=== PATIENT | female | born 1935 | race Caucasian/White ===

== ENCOUNTER 2018-02-02 14:05 | Inpatient (IN) | payer MEDICARE ==
[~2018-02-02 14:05] MED LIST: Iopamidol 370 76% 100 ML VIAL ONE; Iopamidol 370 76% 50 ML VIAL FS ONE
[2018-02-02] MEDS ORDERED: Ondansetron HCl/PF 4 MG/2 ML Vial ONE (14:25)
[2018-02-02] MEDS ORDERED: Atropine Sulfate 1 mg/10 ml Syringe ONE (14:28)
[2018-02-02] MEDS ORDERED: Heparin 10,000 UNITS/1 ML VIAL ONE ×2 (14:36→16:04)
[2018-02-02] MEDS ORDERED: Aggrastat 12.5 MG/250 ML 250 ML ONE (14:36)
[2018-02-02] MEDS ORDERED: Adenosine 6 MG/2 ML VIAL ONE (14:39)
[2018-02-02] MEDS ORDERED: Heparin 1000 UNIT/NS 500ML(OR) 500 ML ONE (14:39)
[2018-02-02] MEDS ORDERED: Nitroglycerin 100MG/250ML BOT 250 ML ONE (15:17)
[2018-02-02] MEDS ORDERED: Heparin 1000 UNIT/NS 500ML(OR) 1,000 ML ONE (16:04)
[2018-02-02 16:11] LABS: #Eosinphils 0.3 thou/uL (0.0-0.7); #Monocytes 0.7 thou/uL (0.11-0.59); #Neutrophils 6.7 thou/uL (1.40-6.50); %Basophils 0.3 % (0.0-1.0); %Eosinophils 3.1 % (0.0-10.0); %Lymphocytes 20.3 % (21.0-51.0); %Monocytes 7.6 % (0.0-10.0); %Neutrophils 68.6 % (42.0-75.0); Hemoglobin 14.1 g/dL (12.0-16.0); Mean Corpuscular HGB CONC 32.7 g/dL (32.0-36.0); Mean Corpuscular Hemoglobin 29.1 pg (27.0-31.0); Mean Corpuscular Volume 89.2 fL (78.0-98.0); Mean Platelet Volume 9.1 fL (7.4-10.4); Platelet Count 207 thou/uL (130-400); RBC Distribution Width 12.2 % (11.5-14.5); Red Blood Cell (RBC) Count 4.84 mill/uL (4.20-5.40); White Blood Cell (WBC) Count 9.7 thou/uL (4.8-10.8)
[2018-02-02 16:17] LABS: INR-International Normal Ratio 1.1
[2018-02-02 16:18] LABS: PTT 74.1 SEC (22.9-36.1)
[2018-02-02 16:24] LABS: CKMB 1.1 ng/mL (0-6.6); Troponin I 0.026 ng/mL (< 0.028)
[2018-02-02] MEDS ORDERED: Sodium Chloride 0.9% 1,000 ML IV SCH (16:38)
[2018-02-02] MEDS ORDERED: Clopidogrel Bisulfate 300 MG TAB PO SCH (16:38)
[2018-02-02 16:46] VITALS: BMI 38.8
[2018-02-02] MEDS ORDERED: Clopidogrel Bisulfate 75 MG TAB ONE (16:56)
[2018-02-02 17:06] LABS: #Lymphocytes 1.6 thou/uL (1.20-3.40); #Monocytes 0.3 thou/uL (0.11-0.59); #Neutrophils 6.8 thou/uL (1.40-6.50); %Basophils 0.6 % (0.0-1.0); %Eosinophils 0.5 % (0.0-10.0); %Lymphocytes 18.4 % (21.0-51.0); %Monocytes 3.1 % (0.0-10.0); %Neutrophils 77.4 % (42.0-75.0); Hemoglobin 13.7 g/dL (12.0-16.0); Mean Corpuscular HGB CONC 33.6 g/dL (32.0-36.0); Mean Corpuscular Hemoglobin 29.7 pg (27.0-31.0); Mean Corpuscular Volume 88.3 fL (78.0-98.0); Mean Platelet Volume 8.2 fL (7.4-10.4); Platelet Count 243 thou/uL (130-400); RBC Distribution Width 12.1 % (11.5-14.5); White Blood Cell (WBC) Count 8.7 thou/uL (4.8-10.8)
[2018-02-02] MEDS ORDERED: Amiodarone In Dextrose 200 ML IVPB SCH (17:15)
[2018-02-02 17:29] LABS: ALT (SGPT) 11 U/L (8-55); AST (SGOT) 21 U/L (5-34); Albumin 3.6 g/dL (3.4-4.8); Alkaline Phosphatase 74 U/L (40-150); Anion Gap 14 mmol/L (10-20); BUN (Urea Nitrogen) 14 mg/dL (9.8-20.1); Bilirubin, Total 0.6 mg/dL (0.2-1.2); CK (CPK) 104 U/L (29-168); Calc. Creatinine Clearance 105 mL/min (70-130); Calcium 8.7 mg/dL (7.8-10.44); Carbon Dioxide 22 mmol/L (23-31); Chloride 103 mmol/L (98-107); Estimated GFR-MDRD 80; Globulin 2.6 g/dL (2.4-3.5); Glucose 259 mg/dL (83-110); Potassium 3.7 mmol/L (3.5-5.1); Protein, Total 6.2 g/dL (6.0-8.3); Sodium 135 mmol/L (136-145)
[2018-02-02] MEDS: Morphine 4 MG/ML VIAL SLOW IVP PRN ×2 (18:17→21:46)
--- NOTE | 2018-02-02 18:52 | RAD ---
PORTABLE AP CHEST X-RAY: 02/02/18 HISTORY: Code Blue. COMPARISON: 02/02/18. FINDINGS: The thoracic aorta is ectatic and partially calcified. The cardiac silhouette is magnified by project ion. Pulmonary vasculature is within normal limits. Linear scarring is again present in the left mid lung zone. Lungs otherwise appear clear. There is osteopenia present. No other interval change. IMPRESSION: Stable chest without evidence of an acute cardiopulmonary process. POS: JARED
[2018-02-02] MEDS: Ondansetron HCl/PF 4 MG/2 ML Vial IVP PRN (19:26)
[2018-02-02] MEDS: Amiodarone HCl 450 MG, Admixture Fee 1 EACH in Dextrose 5% in Water 250 ML IVPB SCH (20:26)
[2018-02-02] MEDS: Acetaminophen 325 MG TAB PO PRN (21:47)
[2018-02-02] MEDS ORDERED: Promethazine HCl 25 MG/ML VIAL SLOW IVP PRN (22:05)
[2018-02-02] MEDS ORDERED: Fentanyl 100 MCG/2 ML VIAL SLOW IVP PRN (22:06)
--- NOTE | 2018-02-02 22:25 | HP ---
HISTORY: Yoanna Galan is an 82-year-old white female from [facility]. At 1:00 a.m. this morning, she began to have chest pressure associated with nausea , vomiting, shortness of breath, no diaphoresis. She eventually went to the emergency room in [place] and was helicoptered here and I saw her approximately 13 hours after onset of her pain. PAST MEDICAL HISTORY: Hypertension and diabetes. She denies any history of hypercholesterolemia. MEDICATIONS: Diabetes and blood pressure medicines. ALLERGIES: None. OPERATIONS: Radiation for meningioma. SOCIAL HISTORY: She does not smoke or drink. FAMILY HISTORY: Negative for coronary artery disease. PHYSICAL EXAMINATION: VITAL SIGNS: Blood pressure 130/70 and pulse of 80. HEENT: PERRL. NECK: Supple. CHEST: Clear. CARDIAC EXAMINATION: S1 and S2 are normal, without any S3 or S4. Carotid upstrokes normal, without bruits. ABDOMEN: Very obese, normal bowel sounds, no tenderness. EXTREMITIES: Revealed trace pretibial edema. NEUROLOGICAL: Grossly intact. LABORATORY AND X-RAY FINDINGS: EKG reveals ST elevation in II, III, and AVF. IMPRESSION: 1. Inferior ST-elevation myocardial infarction. 2. Hypertension. 3. Diabetes. 4. Morbid obesity. PLAN: The situation was discussed with patient. Recommended she undergo emergent catheterization. Risks were discussed including , myocardial infarction, dye reaction, vascular injury, CVA, transfusion, limb loss, renal loss, heat sector. Risk of intervention with PTCA and stent placement were discussed including , myocardial infarction, emergent CABG, restenosis, stent thrombosis, etc. It was recommended that a drug-eluting stent be placed and she has no history of gastrointestinal bleeding, stroke, or upcoming surgery. She agrees to proceed. [facility]
[2018-02-02] MEDS: Aggrastat 12.5 MG/250 ML 250 ML IVPB SCH (23:50)
[2018-02-03 00:29] LABS: CKMB 164.7 ng/mL (0-6.6); Troponin I 32.705 ng/mL (< 0.028)
[2018-02-03 03:59] LABS: CKMB 241.7 ng/mL (0-6.6)
[2018-02-03 04:10] LABS: Troponin I 56.752 ng/mL (< 0.028)
[2018-02-03] MEDS: Ondansetron HCl/PF 4 MG/2 ML Vial IVP PRN ×2 (04:14→11:27)
[2018-02-03 06:42] LABS: #Lymphocytes 1.2 thou/uL (1.20-3.40); #Monocytes 0.8 thou/uL (0.11-0.59); #Neutrophils 9.7 thou/uL (1.40-6.50); %Basophils 0.1 % (0.0-1.0); %Eosinophils 0.1 % (0.0-10.0); %Lymphocytes 10.4 % (21.0-51.0); %Monocytes 6.4 % (0.0-10.0); %Neutrophils 82.9 % (42.0-75.0); Hemoglobin 13.1 g/dL (12.0-16.0); Mean Corpuscular HGB CONC 33.7 g/dL (32.0-36.0); Mean Platelet Volume 8.5 fL (7.4-10.4); Platelet Count 253 thou/uL (130-400); RBC Distribution Width 12.3 % (11.5-14.5); Red Blood Cell (RBC) Count 4.36 mill/uL (4.20-5.40); White Blood Cell (WBC) Count 11.7 thou/uL (4.8-10.8)
[2018-02-03 06:54] LABS: ALT (SGPT) 30 U/L (8-55); AST (SGOT) 183 U/L (5-34); Albumin 3.4 g/dL (3.4-4.8); Alkaline Phosphatase 71 U/L (40-150); Anion Gap 13 mmol/L (10-20); BUN (Urea Nitrogen) 16 mg/dL (9.8-20.1); Bilirubin, Total 0.6 mg/dL (0.2-1.2); Calc. Creatinine Clearance 101 mL/min (70-130); Calcium 8.3 mg/dL (7.8-10.44); Carbon Dioxide 20 mmol/L (23-31); Chloride 105 mmol/L (98-107); Cholesterol 175 mg/dl (< 200 Desired); Estimated GFR-MDRD 77; Globulin 2.7 g/dL (2.4-3.5); Glucose 274 mg/dL (83-110); HDL Cholesterol 35 mg/dL (>60 Neg Risk); LDL Cholesterol, Calculated 120 mg/dL; Potassium 3.6 mmol/L (3.5-5.1); Protein, Total 6.1 g/dL (6.0-8.3); Sodium 134 mmol/L (136-145); Triglycerides 100 mg/dL (Less than 150)
[2018-02-03 06:56] LABS: CKMB 234.8 ng/mL (0-6.6); Critical Call CKMBM RESULT DECREASING
[2018-02-03 07:21] LABS: Troponin I 57.952 ng/mL (< 0.028)
[2018-02-03] MEDS: Clopidogrel Bisulfate 75 MG TAB PO SCH (09:38)
[2018-02-03] MEDS: Amiodarone HCl 450 MG, Admixture Fee 1 EACH in Dextrose 5% in Water 250 ML IVPB SCH (10:49)
[2018-02-03] MEDS: Acetaminophen 325 MG TAB PO PRN (11:27)
[2018-02-03] MEDS: Aggrastat 12.5 MG/250 ML 250 ML IVPB SCH (11:56)
[2018-02-03] MEDS ORDERED: Dextrose 50% Abboject 50 ML SYRINGE SLOW IVP PRN (14:26)
[2018-02-03] MEDS ORDERED: Dextrose 5% in Water 1,000 ML IV PRN (14:26)
[2018-02-03 14:48] LABS: Hemoglobin A1c 7.2 % (4.0-6.0)
--- NOTE | 2018-02-03 15:23 | CON ---
DATE OF CONSULTATION: 02/03/2018 CHIEF COMPLAINT: Chest pressure. CONSULTATION: We have been consulted to evaluate the patient for high blood pressure and diabetes me llitus. HISTORIAN: The patient's daughter and son, reliable. HISTORY OF PRESENT ILLNESS: This is an 82-year-old female with past medical history of diabetes ronnie itus and hypertension who presented to the emergency room with chest discomfort. The patient's chest discomfort started on 02/02/2018 around 1:00 a.m. Per the patient, she felt nausea and some sensati on of not being able to swallow. The patient stated that she had a little bit of shortness of breath and diffuse chest compression. The patient states that she did not have any sharp pain; however, sh e developed the chest compression that she has never felt before. The patient then called her daught er, who lives very close to her and per daughter, she was told to put her clothes on and come over so that they can be able to go to the emergency room. The patient stated that due to her chest michael gaye, daughter picked her up and brought her to the emergency room. The patient states that chest co mpression radiated to her neck and also to her left arm. Her left arm felt very weak. Per the patie nt, nothing really seemed to help with the chest pain. The patient denied any headaches, sweating, c hills, vomiting, chest palpitations, abdominal pain, urinary and bowel incontinence, however, admitte d to having left upper extremity weakness, chest pressure, nausea, dysphagia. REVIEW OF SYSTEMS: As stated before, the patient admitted to chest compression, shortness of breath, left upper extremity weakness, dysphagia, but denied all the other ones except stated in the HPI. PCP: The patient's PCP is Dr. Kemi Mondragon who works with Dr. Alegre at [place]. CODE STATUS: The patient is full code. PAST MEDICAL HISTORY: Hypertension and diabetes mellitus. The patient denies all other past medical history such as hyperlipidemia and heart failure. CURRENT MEDICATIONS: The patient takes metformin and propranolol. ALLERGIES: No known drug allergies. PAST SURGICAL HISTORY: Radiation for meningioma. SOCIAL HISTORY: The patient denies smoking, drinking and illicit drugs. FAMILY HISTORY: No family history of coronary artery disease. SOCIAL HISTORY: The patient lives at home by herself, able to do all her activities of daily living. PHYSICAL EXAMINATION: VITAL SIGNS: Blood pressure , respiratory rate of 22, heart rate of 75, O2 sat of 96% on nasal cannula. GENERAL APPEARANCE: The patient is lying in bed comfortably, does not appear to be in acute distress , communicating, speaking in full sentences without any shortness of breath or any difficulties. HEENT: Normocephalic, atraumatic. Pupils are equal, round and reactive to light. Extraocular movem ents are intact. No scleral icterus. Nose, the patient has nasal cannula in place. Mucous membrane s are moist. NECK: Supple. No JVD. CARDIOVASCULAR: Positive S1, S2. Regular rate and rhythm. No appreciable murmurs. No rubs. LUNGS: Lungs are clear to auscultation bilaterally at the anterior lung flores. ABDOMEN: Soft, nontender, nondistended, obese abdomen. No ecchymosis, no peritoneal signs. Positiv e bowel sounds. EXTREMITIES: +1 pretibial edema, 5/5 upper extremity and lower extremity strength. NEUROLOGIC: No focal neurologic deficits noted. Cranial nerves II-XII grossly intact. PSYCHIATRIC: Awake, alert, oriented x3, normal affect. SKIN: Warm, dry and intact. LABORATORY DATA: EKG revealed ST elevation in II, III, aVF. CK-MB 164.7, 241.7, 234.8. Troponins f irst set 0.026, then 32.705, then 56.752, then 57.952. Lipid panel, triglycerides 100, cholesterol 1 75, LDL is 120, HDL is 35. TSH is 1.11. Creatinine kinase is 104. Alkaline phosphatase is 74. AST and ALT 21 and 11 respectively. Electrolytes, sodium is 135, potassium was 3.7, chloride 103, carbo n dioxide 22, BUN is 14, creatinine is 0.70. Coagulation, PT is 14.0, INR is 1.1, PTT 74.1. WBC was 9.7, hemoglobin 14.1, hematocrit 43.1, RDW 12.2. Chest x-ray showed stable chest without evidence o f an acute cardiopulmonary process. ASSESSMENT AND PLAN: This is an 82-year-old female with diabetes and high blood pressure, being admi tted for, 1. Inferior ST-elevation myocardial infarction. The patient's troponins are positive and CK-MB posi tive. Cardiology has been consulted. Per Cardiology, emergent catheterization was done. The patien t has not been accepted in the ICU. We will follow up with Cardiology's recommendations. 2. Hypertension. We will monitor the patient's blood pressure and start the patient on antihyperten sive medications. 3. Diabetes mellitus. The patient states that she is on metformin. We will adjust the patient medi cations since the patient has been hyperglycemic in the 200s in the hospital. 4. Morbid obesity. Lifestyle modification and exercises are recommended. 5. Deep venous thrombosis and gastrointestinal prophylaxis, SCDs and Pepcid. This case has been dictated by Dr. Gómez Michael on patient Adama To.
--- NOTE | 2018-02-03 15:45 | CON ---
DATE OF CONSULTATION: 02/03/2018 HISTORY OF PRESENT ILLNESS: She is an 82-year-old morbidly obese female, who underwent a c ardiac catheterization yesterday. Her daughter is at the bedside, who states that the patient did no t feel well yesterday and was brought to the ER. EKG shows a sinus bradycardia, rate is in the 52, ST segment elevation. She was taken to cardiac catheterization by Dr. Blake. Please review his note. She has a tempora ry pacemaker inserted through the right femoral area and apparently has had a stent placed in. She is now in the ICU. Awake, alert, responsive. Daughter states the past medical history is pertinent for hypertension and diabetes. She never smoke d, high cholesterol. She has 1 known tremor. PAST SURGICAL HISTORY: Meningioma in the past. Chronic medication from home includes metformin 5000 twice a day, Inderal 40 three times a day. She is presently on amiodarone and Plavix. SOCIAL AND FAMILY HISTORY: Unremarkable. Alcohol, none. Tobacco, none. REVIEW OF SYSTEMS: Otherwise, 10-point negative. PHYSICAL EXAMINATION: GENERAL: Awake, alert, responsive. VITAL SIGNS: Pulse 70, blood pressure 150/80, sats 90%, respirations 18. CHEST: Decreased breath sounds, no wheezing. CARDIAC: Normal S1, S2. No gallops. ABDOMEN: Soft, no masses. LABORATORY DATA: White count , H&H 13 and 38, platelet count 53. Electrolytes are normal. Tro ponin is elevated at . X-ray shows no acute infiltrates. IMPRESSION: 1. Status post bradycardia, status post pacemaker. 2. Abnormal electrocardiogram, coronary artery disease, status post cardiac catheterization. 3. Obesity. 4. Tremor. PLAN: Pulmonary Critical Care will follow while in the ICU. Continue cardiac care, aggressive PT, s upportive care. I will order a thyroid profile. 70 minutes, 50% spent in direct patient care.
--- NOTE | 2018-02-03 15:56 | CCL ---
CARDIAC CATHETERIZATION REPORT: PROCEDURE: Coronary arteriography, [employer] and stent placement in the right coronary artery. Intracoronary nitroglycerin. Intracoronary adenosine. Defibrillation x 7. Temporary pacemaker placement. INDICATION: Inferior STEMI. DESCRIPTION OF PROCEDURE: The patient was brought to the cardiac logging rafter laborer and the right groin was prepped and draped in the usual fashion. 1% lidocaine was infiltrated. A 6- Malawian sheath was placed into the right femoral artery. A 6-Malawian right 4 guide catheter was inserted. The right coronary artery was subtotally occluded distally and a Floppy Choice wire was advanced into the distal right posterolateral. Mobile catheter was inserted, but would not advance past the area of significant stenosis. This was then removed and Emerge 3.0 x 20 mm balloon was inserted and multiple inflations were performed. Heparin was given multiple times during the procedure to a goal of ACT greater than 300. The patient became bradycardic and Atropine 0.5 mg was given. A 5 Malawian sheath was placed into the right femoral vein and a 5-Malawian tipped balloon pacing wire was inserted into the right ventricular apex. Threshold was less than 1 volt and the patient was paced during the remainder of the case. There was no flow in the right coronary artery and the decision was made to proceed to stent the distal vessel. Synergy 3.5 x 20 mm stent was positioned and deployed. Proximal to this, another 3.5 x 38 and then another 3.5 x 38 stents were placed. There continued to be poor flow and multiple doses of adenosine and nitroglycerin were given. A decision was made to insert the Mobile catheter to do direct injections into the distal vessel. The patient did have multiple episodes of ventricular tachycardia which responded to electrical cardioversion performed on multiple occasions, probably up to 7. Adenosine was continued to be given distally. The patient was given amiodarone 300 mg IV and then this was followed by an amiodarone drip and she did not have any further ventricular tachycardia. Multiple doses of nitroglycerin and adenosine were given through the Mobile catheter into the distal right coronary artery. There continued to remain no flow distally. The patient also had been treated with Aggrastat since the beginning of the procedure. The right 4 guide catheter was then removed and left 4 diagnostic catheter was inserted. Left coronary arteriography was performed. The sheath was sutured in place as well as the temporary pacemaker. RESULTS: 1. Right coronary artery -- 60% mid stenosis, 99% distal stenosis. After insertion of stents and injection of nitroglycerin and adenosine distally at the site of bifurcation, there was still IMAN 0 flow. 2. Left main -- normal. 3. The LAD had a 30% proximal stenosis, 60% mid stenosis, 95% distal stenosis. The first diagonal had a 70% stenosis. 4. Circumflex -- There was 60% mid stenosis. IMPRESSION: 1. Three-vessel coronary artery disease. 2. Successful stent placement in the mid to distal right coronary artery into the right posterolateral, however, with IMAN flow despite intracoronary nitroglycerin and adenosine injected distally and Aggristat. POS: LOY LITTLEJOHN
[2018-02-03] MEDS: HumaLOG 300 UNITS/3 ML VIAL SC PRN ×2 (16:43→21:15)
[2018-02-03] MEDS: Morphine 4 MG/ML VIAL SLOW IVP PRN (19:31)
[2018-02-03] MEDS: Atorvastatin Calcium 40 MG TAB PO SCH (21:11)
[2018-02-04] MEDS: Amiodarone HCl 450 MG, Admixture Fee 1 EACH in Dextrose 5% in Water 250 ML IVPB SCH (01:06)
[2018-02-04] MEDS: Morphine 4 MG/ML VIAL SLOW IVP PRN ×2 (01:12→18:05)
[2018-02-04 04:55] LABS: Anion Gap 11 mmol/L (10-20); BUN (Urea Nitrogen) 17 mg/dL (9.8-20.1); Calc. Creatinine Clearance 108 mL/min (70-130); Calcium 8.4 mg/dL (7.8-10.44); Carbon Dioxide 24 mmol/L (23-31); Chloride 104 mmol/L (98-107); Estimated GFR-MDRD 83; Glucose 215 mg/dL (83-110); Potassium 3.5 mmol/L (3.5-5.1); Sodium 135 mmol/L (136-145)
[2018-02-04] MEDS: HumaLOG 300 UNITS/3 ML VIAL SC PRN ×4 (06:25→23:51)
[2018-02-04] MEDS: Clopidogrel Bisulfate 75 MG TAB PO SCH (09:23)
[2018-02-04] MEDS ORDERED: Insulin Glargine 10 UNITS in Pre-Filled Syringe SC SCH (09:30)
--- NOTE | 2018-02-04 10:56 | PRG ---
DATE OF SERVICE: 02/04/2018 SUBJECTIVE: A7 ICU, still got a transvenous pacemaker to the groin. OBJECTIVE: VITAL SIGNS: Heart rate is 80, blood pressure 152/79, sats 100%, respirations 18. GENERAL: In no distress. CHEST: Decreased breath sounds, no wheezing. CARDIAC: Normal S1 and S2, no gallops. ABDOMEN: No masses. ASSESSMENT: Status post cardiac catheterization, bradycardia with a pacemaker, coronary artery disea se. PLAN: We will follow while in the ICU. Continue present supportive care as per Cardiology.
[2018-02-04] MEDS ORDERED: Propranolol HCl 20 MG TAB PO SCH (11:15)
[2018-02-04] MEDS: Propranolol HCl 20 MG TAB PO SCH ×2 (16:05→22:00)
[2018-02-04] MEDS: Atorvastatin Calcium 40 MG TAB PO SCH (21:59)
--- NOTE | 2018-02-04 23:06 | PDOC.PN ---
- Subjective Encounter Start Date: 02/04/18 Encounter Start Time: 09:30 Patient seen and examined for med mngt. No new complaints. No overnight events - Objective MAR Reviewed: Yes Vital Signs & Weight: Vital Signs (12 hours) Temp Pulse Resp BP Pulse Ox 02/04/18 20:00 98.4 F 02/04/18 18:31 97 02/04/18 16:38 98.2 F 82 17 153/94 H 02/04/18 16:00 98.2 F 02/04/18 12:00 98.1 F Weight Weight 233 lb 7.512 oz Most Recent Monitor Data Heart Rate from ECG 71 NIBP 139/78 NIBP BP-Mean 85 Respiration from ECG 20 SpO2 99 I&O: 02/03/18 02/04/18 02/05/18 06:59 06:59 06:59 Intake Total 2189 1095 1107 Output Total 640 805 635 Balance 1549 290 472 Result Diagrams: 02/03/18 06:20 02/04/18 04:10 Additional Labs: Accuchecks 02/04/18 02/04/18 02/04/18 17:44 11:39 06:25 POC Glucose 191 H 187 H 188 H EKG Reviewed by me: Yes (Tele SR) Phys Exam - Physical Examination Constitutional: NAD Respiratory: no wheezing, no rhonchi Cardiovascular: RRR, no rub Gastrointestinal: soft, non-tender, positive bowel sounds Musculoskeletal: no edema Neurological: moves all 4 limbs Dx/Plan - Plan DVT proph w/SCDs IMPRESSION: 1. DM2 - uncontrolled. 2. HTN 3. Obesity BMI 38.9 4. CKD 2 5. Other issues per previous notes PLAN: Add Lantus 10 units daily Cont Moderate sliding scale Resume Inderal Cont to monitor Review of Systems - Review of Systems Cardiovascular: negative: chest pain, palpitations, orthopnea, paroxysmal nocturnal dyspnea, edema, light headedness, other Gastrointestinal: negative: Nausea, Vomiting, Abdominal Pain, Diarrhea, Constipation, Melena, Hematochezia, Other - Medications/Allergies Allergies/Adverse Reactions: Allergies Allergy/AdvReac Type Severity Reaction Status Date / Time No Known Drug Allergies Allergy Verified 02/02/18 16:45 Medications: Current Medications Acetaminophen (Tylenol) 650 mg PO Q6H PRN PRN Reason: Pain Last Admin: 02/03/18 11:27 Dose: 650 mg Aspirin (Aspirin Chewable) 81 mg PO DAILY [facility] Last Admin: 02/04/18 09:23 Dose: 81 mg Atorvastatin Calcium (Lipitor) 40 mg PO HS [facility] Last Admin: 02/04/18 21:59 Dose: 40 mg Clopidogrel Bisulfate (Plavix) 75 mg PO DAILY [facility] Last Admin: 02/04/18 09:23 Dose: 75 mg Dextrose/Water (Dextrose 50%) 25 gm SLOW IVP PRN PRN PRN Reason: Hypoglycemia Fentanyl (Sublimaze) 25 mcg SLOW IVP Q4H PRN PRN Reason: Severe Pain (7-10) Glucagon (Glucagon) 1 mg IM PRN PRN PRN Reason: Hypoglycemia Dextrose/Water (D5w) 1,000 mls @ 0 mls/hr IV .Q0M PRN PRN Reason: Hypoglycemia Insulin Glargine 10 units/ (Miscellaneous Medication) 0.1 mls @ 0 mls[place] [facility] [place] Human Lispro (Humalog) 0 units SC .MODERATE SLIDING SC PRN PRN Reason: Moderate Correctional Scale Last Admin: 02/04/18 18:10 Dose: 2 unit Morphine Sulfate (Morphine) 4 mg SLOW IVP Q4H PRN PRN Reason: Breakthrough Pain Last Admin: 02/04/18 18:05 Dose: 4 mg Ondansetron HCl (Zofran) 4 mg IVP Q6H PRN PRN Reason: Nausea/Vomiting Last Admin: 02/03/18 11:27 Dose: 4 mg Promethazine HCl (Phenergan) 25 mg SLOW IVP Q6H PRN PRN Reason: Nausea Last Admin: 02/02/18 22:27 Dose: 25 mg Propranolol HCl (Inderal) 40 mg PO TID [facility] Last Admin: 02/04/18 22:00 Dose: 40 mg Sodium Chloride (Flush - Normal Saline) 10 ml IVF Q12HR [facility] Last Admin: 02/04/18 22:01 Dose: 10 ml Sodium Chloride (Flush - Normal Saline) 10 ml IVF PRN PRN PRN Reason: Saline Flush
[2018-02-05 05:28] LABS: Hemoglobin 12.3 g/dL (12.0-16.0); Platelet Count 223 thou/uL (130-400)
[2018-02-05 05:38] LABS: Anion Gap 9 mmol/L (10-20); BUN (Urea Nitrogen) 15 mg/dL (9.8-20.1); Calc. Creatinine Clearance 119 mL/min (70-130); Calcium 8.4 mg/dL (7.8-10.44); Carbon Dioxide 25 mmol/L (23-31); Chloride 104 mmol/L (98-107); Estimated GFR-MDRD Greater than 90; Glucose 145 mg/dL (83-110); Magnesium 1.8 mg/dL (1.6-2.6); Potassium 3.7 mmol/L (3.5-5.1); Sodium 134 mmol/L (136-145)
[2018-02-05] MEDS: Morphine 4 MG/ML VIAL SLOW IVP PRN (06:46)
--- NOTE | 2018-02-05 07:50 | PRG ---
DATE OF SERVICE: 02/05/2018 This morning she is awake, alert, responsive. She is having back pain. PHYSICAL EXAMINATION: VITAL SIGNS: Blood pressure is 124/63, sats 99 on 3 liters, temperature 98, pulse 80. CHEST: Decreased breath sounds, no wheezing. CARDIAC: Normal S1-S2. No gallops. ABDOMEN: Soft. No masses. IMPRESSION: 1. Status post cardiac cath. 2. Status post temporary pacemaker. 3. Chronic pain. PLAN: Aspirin and Plavix on board. Disposition as per Cardiology.
[2018-02-05] MEDS: Clopidogrel Bisulfate 75 MG TAB PO SCH (09:11)
[2018-02-05] MEDS: Propranolol HCl 20 MG TAB PO SCH ×3 (09:12→20:49)
[2018-02-05] MEDS: Senokot S 8.6-50 MG TAB PO SCH ×2 (09:12→20:50)
[2018-02-05] MEDS: Insulin Glargine 10 UNITS in Pre-Filled Syringe SC SCH (09:13)
[2018-02-05] MEDS: HumaLOG 300 UNITS/3 ML VIAL SC PRN ×2 (11:25→17:02)
[2018-02-05] MEDS: Atorvastatin Calcium 40 MG TAB PO SCH (20:50)
[2018-02-05] MEDS: Acetaminophen 325 MG TAB PO PRN (20:55)
--- NOTE | 2018-02-05 21:21 | PDOC.PN ---
- Subjective Encounter Start Date: 02/05/18 Encounter Start Time: 11:00 Patient seen and examined for med mngt. No new complaints. No overnight events - Objective MAR Reviewed: Yes Vital Signs & Weight: Vital Signs (12 hours) Temp Pulse Pulse BP BP Pulse Ox Pulse Ox 02/05/18 18:52 97 02/05/18 16:00 98.2 F 02/05/18 12:00 98.0 F 02/05/18 11:42 98 02/05/18 10:13 77 85 145/80 H 124/68 94 L Pulse Ox 02/05/18 18:52 02/05/18 16:00 02/05/18 12:00 02/05/18 11:42 02/05/18 10:13 95 Weight Weight 233 lb 7.512 oz Most Recent Monitor Data Heart Rate from ECG 75 NIBP 98/52 NIBP BP-Mean 63 Respiration from ECG 22 SpO2 99 I&O: 02/04/18 02/05/18 02/06/18 06:59 06:59 06:59 Intake Total 1095 1107 740 Output Total 805 1075 506 Balance 290 32 234 Result Diagrams: 02/05/18 05:02 02/05/18 05:02 Additional Labs: Accuchecks 02/05/18 02/05/18 02/04/18 16:48 11:22 23:16 POC Glucose 184 H 197 H 159 H EKG Reviewed by me: Yes (Tele SR) Phys Exam - Physical Examination Constitutional: NAD Respiratory: no wheezing, no rhonchi Cardiovascular: RRR, no rub Gastrointestinal: soft, non-tender, positive bowel sounds Musculoskeletal: no edema Neurological: moves all 4 limbs Dx/Plan - Plan DVT proph w/SCDs IMPRESSION: 1. DM2 2. HTN 3. Obesity BMI 38.9 4. CKD 2 5. Other issues per previous notes PLAN: Cont Lantus 10 units daily with sliding scale Insulin teaching Resume Metformin in AM Cont Moderate sliding scale Cont other meds as below Cont to monitor Review of Systems - Review of Systems Respiratory: negative: Cough, Dry, Shortness of Breath, Hemoptysis, SOB with Excertion, Pleuritic Pain, Sputum, Wheezing Cardiovascular: negative: chest pain, palpitations, orthopnea, paroxysmal nocturnal dyspnea, edema, light headedness, other - Medications/Allergies Allergies/Adverse Reactions: Allergies Allergy/AdvReac Type Severity Reaction Status Date / Time No Known Drug Allergies Allergy Verified 02/02/18 16:45 Medications: Current Medications Acetaminophen (Tylenol) 650 mg PO Q6H PRN PRN Reason: Pain Last Admin: 02/05/18 20:55 Dose: 650 mg Aspirin (Aspirin Chewable) 81 mg PO DAILY [facility] Last Admin: 02/05/18 09:11 Dose: 81 mg Atorvastatin Calcium (Lipitor) 40 mg PO HS [facility] Last Admin: 02/05/18 20:50 Dose: 40 mg Clopidogrel Bisulfate (Plavix) 75 mg PO DAILY [facility] Last Admin: 02/05/18 09:11 Dose: 75 mg Dextrose/Water (Dextrose 50%) 25 gm SLOW IVP PRN PRN PRN Reason: Hypoglycemia Fentanyl (Sublimaze) 25 mcg SLOW IVP Q4H PRN PRN Reason: Severe Pain (7-10) Glucagon (Glucagon) 1 mg IM PRN PRN PRN Reason: Hypoglycemia Dextrose/Water (D5w) 1,000 mls @ 0 mls/hr IV .Q0M PRN PRN Reason: Hypoglycemia Insulin Glargine 10 units/ (Miscellaneous Medication) 0.1 mls @ 0 mls/hr SC QAM [facility] Last Admin: 02/05/18 09:13 Dose: 0.1 mls Insulin Human Lispro (Humalog) 0 units SC .MODERATE SLIDING SC PRN PRN Reason: Moderate Correctional Scale Last Admin: 02/05/18 17:02 Dose: 2 unit Morphine Sulfate (Morphine) 4 mg SLOW IVP Q4H PRN PRN Reason: Breakthrough Pain Last Admin: 02/05/18 06:46 Dose: 4 mg Ondansetron HCl (Zofran) 4 mg IVP Q6H PRN PRN Reason: Nausea/Vomiting Last Admin: 02/03/18 11:27 Dose: 4 mg Promethazine HCl (Phenergan) 25 mg SLOW IVP Q6H PRN PRN Reason: Nausea Last Admin: 02/02/18 22:27 Dose: 25 mg Propranolol HCl (Inderal) 40 mg PO TID [facility] Last Admin: 02/05/18 20:49 Dose: 40 mg Senna/Docusate Sodium (Senokot S) 1 tab PO BID [facility] Last Admin: 02/05/18 20:50 Dose: 1 tab Sodium Chloride (Flush - Normal Saline) 10 ml IVF Q12HR [facility] Last Admin: 02/05/18 20:50 Dose: 10 ml Sodium Chloride (Flush - Normal Saline) 10 ml IVF PRN PRN PRN Reason: Saline Flush
[2018-02-06] MEDS: Propranolol HCl 20 MG TAB PO SCH ×3 (09:30→20:23)
[2018-02-06] MEDS: metFORMIN 500 MG TAB PO SCH ×2 (09:30→19:06)
[2018-02-06] MEDS: Clopidogrel Bisulfate 75 MG TAB PO SCH (09:31)
[2018-02-06] MEDS: Insulin Glargine 10 UNITS in Pre-Filled Syringe SC SCH (09:31)
[2018-02-06] MEDS: Senokot S 8.6-50 MG TAB PO SCH ×2 (09:31→20:22)
[2018-02-06] MEDS: Atorvastatin Calcium 40 MG TAB PO SCH (20:23)
--- NOTE | 2018-02-06 21:55 | PDOC.PN ---
- Subjective Encounter Start Date: 02/06/18 Encounter Start Time: 08:30 Patient seen and examined for med mngt. No new complaints. No overnight events. No CP. - Objective MAR Reviewed: Yes Vital Signs & Weight: Vital Signs (12 hours) Temp Pulse Pulse Pulse Resp BP BP 02/06/18 20:00 98.3 F 74 19 02/06/18 16:00 98.2 F 70 12 02/06/18 12:00 98.0 F 73 14 02/06/18 11:54 72 76 130/77 138/79 BP Pulse Ox Pulse Ox 02/06/18 20:00 120/61 95 02/06/18 16:00 129/84 93 L 02/06/18 12:00 126/68 94 L 02/06/18 11:54 99 Weight Weight 229 lb 14.4 oz Most Recent Monitor Data Heart Rate from ECG 75 NIBP 98/52 NIBP BP-Mean 63 Respiration from ECG 22 SpO2 99 I&O: 02/05/18 02/06/18 02/07/18 06:59 06:59 06:59 Intake Total 1107 980 720 Output Total 1075 956 Balance 32 24 720 Result Diagrams: 02/05/18 05:02 02/05/18 05:02 Additional Labs: Accuchecks 02/06/18 02/06/18 02/06/18 20:05 17:11 10:35 POC Glucose 127 H 142 H 152 H 02/06/18 05:57 POC Glucose 141 H Phys Exam - Physical Examination Constitutional: NAD Respiratory: no wheezing, no rhonchi Cardiovascular: RRR, no rub Gastrointestinal: soft, non-tender, positive bowel sounds Musculoskeletal: no edema Neurological: moves all 4 limbs Dx/Plan - Plan DVT proph w/SCDs IMPRESSION: 1. DM2 2. HTN 3. Obesity BMI 38.9 4. CKD 2 5. Other issues per previous notes PLAN: Cont Lantus/metformin/sliding scale Cont other meds as below Cont to monitor Review of Systems - Review of Systems Respiratory: negative: Cough, Dry, Shortness of Breath, Hemoptysis, SOB with Excertion, Pleuritic Pain, Sputum, Wheezing Cardiovascular: negative: chest pain, palpitations, orthopnea, paroxysmal nocturnal dyspnea, edema, light headedness, other - Medications/Allergies Allergies/Adverse Reactions: Allergies Allergy/AdvReac Type Severity Reaction Status Date / Time No Known Drug Allergies Allergy Verified 02/02/18 16:45 Medications: Current Medications Acetaminophen (Tylenol) 650 mg PO Q6H PRN PRN Reason: Pain Last Admin: 02/05/18 20:55 Dose: 650 mg Aspirin (Aspirin Chewable) 81 mg PO DAILY [facility] Last Admin: 02/06/18 09:31 Dose: 81 mg Atorvastatin Calcium (Lipitor) 40 mg PO HS [facility] Last Admin: 02/06/18 20:23 Dose: 40 mg Clopidogrel Bisulfate (Plavix) 75 mg PO DAILY [facility] Last Admin: 02/06/18 09:31 Dose: 75 mg Dextrose/Water (Dextrose 50%) 25 gm SLOW IVP PRN PRN PRN Reason: Hypoglycemia Fentanyl (Sublimaze) 25 mcg SLOW IVP Q4H PRN PRN Reason: Severe Pain (7-10) Glucagon (Glucagon) 1 mg IM PRN PRN PRN Reason: Hypoglycemia Dextrose/Water (D5w) 1,000 mls @ 0 mls/hr IV .Q0M PRN PRN Reason: Hypoglycemia Insulin Glargine 10 units/ (Miscellaneous Medication) 0.1 mls @ 0 mls/hr SC [facility] Last Admin: 02/06/18 09:31 Dose: 0.1 mls Insulin Human Lispro (Humalog) 0 units SC .MODERATE SLIDING SC PRN PRN Reason: Moderate Correctional Scale Last Admin: 02/05/18 17:02 Dose: 2 unit Metformin HCl (Glucophage) 500 mg PO BID[facility] Last Admin: 02/06/18 19:06 Dose: 500 mg Morphine Sulfate (Morphine) 4 mg SLOW IVP Q4H PRN PRN Reason: Breakthrough Pain Last Admin: 02/05/18 06:46 Dose: 4 mg Ondansetron HCl (Zofran) 4 mg IVP Q6H PRN PRN Reason: Nausea/Vomiting Last Admin: 02/03/18 11:27 Dose: 4 mg Promethazine HCl (Phenergan) 25 mg SLOW IVP Q6H PRN PRN Reason: Nausea Last Admin: 02/02/18 22:27 Dose: 25 mg Propranolol HCl (Inderal) 40 mg PO TID [facility] Last Admin: 02/06/18 20:23 Dose: 40 mg Senna/Docusate Sodium (Senokot S) 1 tab PO BID [facility] Last Admin: 02/06/18 20:22 Dose: 1 tab Sodium Chloride (Flush - Normal Saline) 10 ml IVF Q12HR [facility] Last Admin: 02/06/18 21:10 Dose: 10 ml Sodium Chloride (Flush - Normal Saline) 10 ml IVF PRN PRN PRN Reason: Saline Flush
--- NOTE | 2018-02-07 02:17 | CON ---
DATE OF CONSULTATION: 02/06/2018 REQUESTING PHYSICIAN: Shai Blake M.D. PRIMARY CARE PHYSICIAN: ERIKA Jackson CHIEF COMPLAINT: Chest pain. HISTORY OF PRESENT ILLNESS: The patient is a morbidly obese 82-year-old woman with poorly controlled diabetes mellitus. She recently presented with severe chest pain which was her first manifestation of coronary artery disease. She had ST elevation and positive troponins and peaked her CK-MB at approximately 240 and her troponin at approximately 58. She was taken urgently to the [employer] to address her inferior ST elevation and she was found to have very long, high grade lesion in her distal right coronary. Attempts at placement of a drug -eluting stent; however, were fraught with difficulty with respect to maintaining flow through the coronary and at the end of the procedure dye was hanging up in a large posterolateral branch, after left-sided injections suggesting that it re-occluded once again. She has a residual left-sided disease, particularly in her LAD system. She had problems with bradyarrhythmias during the procedure. Temporary pacemaker was placed. Since her procedure, she has remained asymptomatic with respect to chest pain and while she has not had a lot of walking around, she has done some walking around with help and has not had any issues with chest heaviness or shortness of breath or any other symptoms to suggest ischemia. PAST MEDICAL HISTORY: Significant for hypertension and diabetes. HOME MEDICATIONS: Metformin 500 mg b.i.d. and Inderal 40 mg t.i.d., currently baby aspirin and Plavix have been added to that along with Lipitor 40 mg a day and sliding scale insulin. SOCIAL HISTORY: She does not smoke. FAMILY HISTORY: She reports multiple family members with diabetes. REVIEW OF SYSTEMS: Negative for any eye, speech, facial, or extremity symptoms to suggest TIAs. PHYSICAL EXAMINATION: GENERAL: She is an elderly woman who is markedly obese. Currently, heart rates are in the 70s, blood pressure 129/84, room air sats are 93%. She is afebrile. GENERAL: She has no obvious xanthelasma. NECK: No JVD, no carotid bruits. LUNGS: Clear to auscultation. CARDIOVASCULAR: She has regular rate and rhythm without murmur or gallop. ABDOMEN: Morbidly obese. EXTREMITIES: She has palpable radial and dorsalis pedis pulses. She has spider as well as bulging varicosities on her lower extremities, but does appear to have large, but smooth contour greater saphenous vein in the left lower extremity visible in the lower leg. She says that most of her bulging varicosities are posterior to her calf. She has no clubbing, cyanosis or edema. Her chest x-ray showed some mild edema and some aortic knob calcification and her pacer in place. LABORATORY DATA: Showed white count of 9.7, hemoglobin 14.1, platelets 207, 000. Normal coagulation studies. Electrolytes were normal. Glucose was 259, BUN 14, creatinine 0.7. Normal LFTs. Hemoglobin A1c was 7.2. Total cholesterol is 175, LDL 120, HDL 35, triglycerides 100. CK-MB peaked to 41.7 and her troponin was 57.952. Her EKG showed inferior ST elevation. Her cardiac catheterization shows a large right coronary system as described in HPI. She had some disease in her mid distal PDA. Her PDA became nonvisible towards the end of the procedure. She has serial modest lesions in an obtuse marginal. She has an LAD diagonal bifurcation lesion fairly high and then diffuse disease in her mid distal LAD with one focal lesion that is probably in the 80-90% range. Echocardiography shows an EF of around 50% or 60%. The inferior wall appears to be viable. IMPRESSION AND RECOMMENDATIONS: The patient has three-vessel coronary artery disease with essentially normal left ventricular function and the LAD disease is not proximal; one could certainly make an argument for medical management even if she were younger, fitter, and had better quality vessels. It is difficult, however, to imagine that she will remain asymptomatic when she becomes more active given the magnitude of her VA would be nice to be able to wait a few weeks before revascularizing her and I have discussed with Dr. Blake, the possibility of seeing how she does over the next few weeks and possibly restudying her if she is to be considered for revascularization surgically. ANNETTA
[2018-02-07] MEDS: metFORMIN 500 MG TAB PO SCH ×2 (08:33→17:50)
[2018-02-07] MEDS: Propranolol HCl 20 MG TAB PO SCH ×3 (08:33→20:50)
[2018-02-07] MEDS: Insulin Glargine 10 UNITS in Pre-Filled Syringe SC SCH (08:33)
[2018-02-07] MEDS: Senokot S 8.6-50 MG TAB PO SCH ×2 (08:33→20:50)
[2018-02-07] MEDS: Clopidogrel Bisulfate 75 MG TAB PO SCH (08:33)
[2018-02-07] MEDS: Lisinopril 2.5 MG TAB PO SCH (10:11)
[2018-02-07] MEDS: Ondansetron HCl/PF 4 MG/2 ML Vial IVP PRN (17:42)
--- NOTE | 2018-02-07 20:42 | PDOC.PN ---
- Subjective Encounter Start Date: 02/07/18 Encounter Start Time: 09:30 Patient seen and examined for med mngt. No new complaints. No overnight events - Objective MAR Reviewed: Yes Vital Signs & Weight: Vital Signs (12 hours) Temp Pulse Pulse Pulse Resp BP BP 02/07/18 20:00 97.9 F 65 22 H 02/07/18 15:36 97.7 F 75 18 02/07/18 12:34 136/72 02/07/18 11:27 98.0 F 67 18 02/07/18 10:45 75 67 140/79 143/83 H 02/07/18 10:11 66 BP Pulse Ox 02/07/18 20:00 140/73 94 L 02/07/18 15:36 154/83 H 93 L 02/07/18 12:34 02/07/18 11:27 140/79 95 02/07/18 10:45 02/07/18 10:11 Weight Weight 229 lb 14.4 oz Most Recent Monitor Data Heart Rate from ECG 75 NIBP 98/52 NIBP BP-Mean 63 Respiration from ECG 22 SpO2 99 I&O: 02/06/18 02/07/18 02/08/18 06:59 06:59 06:59 Intake Total 980 960 480 Output Total 956 Balance 24 960 480 Result Diagrams: 02/08/18 04:03 02/08/18 04:03 Additional Labs: Accuchecks 02/07/18 02/07/18 02/07/18 16:37 10:45 06:04 POC Glucose 93 112 H 115 H 02/06/18 20:05 POC Glucose 127 H EKG Reviewed by me: Yes (Tele SR) Phys Exam - Physical Examination Constitutional: NAD Respiratory: no wheezing, no rhonchi Cardiovascular: RRR, no rub Gastrointestinal: soft, non-tender, positive bowel sounds Musculoskeletal: no edema Neurological: moves all 4 limbs Dx/Plan - Plan DVT proph w/SCDs IMPRESSION: 1. DM2 2. HTN 3. Obesity BMI 38.9 4. CKD 2 5. Other issues per previous notes PLAN: Cont Lantus with sliding scale Cont Metformin Cont other meds as below Cont to monitor Review of Systems - Review of Systems Respiratory: negative: Cough, Dry, Shortness of Breath, Hemoptysis, SOB with Excertion, Pleuritic Pain, Sputum, Wheezing Cardiovascular: negative: chest pain, palpitations, orthopnea, paroxysmal nocturnal dyspnea, edema, light headedness, other - Medications/Allergies Allergies/Adverse Reactions: Allergies Allergy/AdvReac Type Severity Reaction Status Date / Time No Known Drug Allergies Allergy Verified 02/02/18 16:45 Medications: Current Medications Acetaminophen (Tylenol) 650 mg PO Q6H PRN PRN Reason: Pain Last Admin: 02/05/18 20:55 Dose: 650 mg Aspirin (Aspirin Chewable) 81 mg PO DAILY [facility] Last Admin: 02/07/18 08:33 Dose: 81 mg Atorvastatin Calcium (Lipitor) 40 mg PO HS [facility] Last Admin: 02/06/18 20:23 Dose: 40 mg Clopidogrel Bisulfate (Plavix) 75 mg PO DAILY [facility] Last Admin: 02/07/18 08:33 Dose: 75 mg Dextrose/Water (Dextrose 50%) 25 gm SLOW IVP PRN PRN PRN Reason: Hypoglycemia Fentanyl (Sublimaze) 25 mcg SLOW IVP Q4H PRN PRN Reason: Severe Pain (7-10) Glucagon (Glucagon) 1 mg IM PRN PRN PRN Reason: Hypoglycemia Dextrose/Water (D5w) 1,000 mls @ 0 mls/hr IV .Q0M PRN PRN Reason: Hypoglycemia Insulin Glargine 10 units/ (Miscellaneous Medication) 0.1 mls @ 0 mls/hr [facility] Last Admin: 02/07/18 08:33 Dose: 0.1 mls Insulin Human Lispro (Humalog) 0 units SC .MODERATE SLIDING SC PRN PRN Reason: Moderate Correctional Scale Last Admin: 02/05/18 17:02 Dose: 2 unit Lisinopril (Zestril) 2.5 mg PO DAILY [facility] Last Admin: 02/07/18 10:11 Dose: 2.5 mg Metformin HCl (Glucophage) 500 mg PO BID[facility] Last Admin: 02/07/18 17:50 Dose: Not Given Morphine Sulfate (Morphine) 4 mg SLOW IVP Q4H PRN PRN Reason: Breakthrough Pain Last Admin: 02/05/18 06:46 Dose: 4 mg Ondansetron HCl (Zofran) 4 mg IVP Q6H PRN PRN Reason: Nausea/Vomiting Last Admin: 02/07/18 17:42 Dose: 4 mg Promethazine HCl (Phenergan) 25 mg SLOW IVP Q6H PRN PRN Reason: Nausea Last Admin: 02/02/18 22:27 Dose: 25 mg Propranolol HCl (Inderal) 40 mg PO TID [facility] Last Admin: 02/07/18 16:37 Dose: 40 mg Senna/Docusate Sodium (Senokot S) 1 tab PO BID [facility] Last Admin: 02/07/18 08:33 Dose: 1 tab Sodium Chloride (Flush - Normal Saline) 10 ml IVF Q12HR [facility] Last Admin: 02/07/18 10:12 Dose: 10 ml Sodium Chloride (Flush - Normal Saline) 10 ml IVF PRN PRN PRN Reason: Saline Flush
[2018-02-07] MEDS: Atorvastatin Calcium 40 MG TAB PO SCH (20:50)
[2018-02-08 04:21] LABS: Hemoglobin 11.3 g/dL (12.0-16.0); Platelet Count 276 thou/uL (130-400)
[2018-02-08 05:13] LABS: Anion Gap 11 mmol/L (10-20); BUN (Urea Nitrogen) 14 mg/dL (9.8-20.1); Calc. Creatinine Clearance 119 mL/min (70-130); Calcium 8.5 mg/dL (7.8-10.44); Carbon Dioxide 24 mmol/L (23-31); Chloride 106 mmol/L (98-107); Estimated GFR-MDRD Greater than 90; Glucose 93 mg/dL (83-110); Magnesium 1.6 mg/dL (1.6-2.6); Potassium 3.3 mmol/L (3.5-5.1); Sodium 138 mmol/L (136-145)
[2018-02-08] MEDS ORDERED: Potassium Chloride 20 MEQ TAB PO SCH (08:00)
[2018-02-08] MEDS: metFORMIN 500 MG TAB PO SCH ×2 (08:56→18:25)
[2018-02-08] MEDS: Senokot S 8.6-50 MG TAB PO SCH ×2 (08:59→21:09)
[2018-02-08] MEDS: Clopidogrel Bisulfate 75 MG TAB PO SCH (08:59)
[2018-02-08] MEDS: Propranolol HCl 20 MG TAB PO SCH ×3 (09:00→21:06)
[2018-02-08] MEDS: Lisinopril 2.5 MG TAB PO SCH (09:00)
[2018-02-08] MEDS: Insulin Glargine 10 UNITS in Pre-Filled Syringe SC SCH (09:03)
[2018-02-08] MEDS: Atorvastatin Calcium 40 MG TAB PO SCH (21:05)
--- NOTE | 2018-02-08 22:38 | PDOC.PN ---
- Subjective Encounter Start Date: 02/08/18 Encounter Start Time: 09:30 Patient seen and examined for med mngt. No new complaints. No overnight events - Objective MAR Reviewed: Yes Vital Signs & Weight: Vital Signs (12 hours) Temp Pulse Pulse Pulse Resp BP BP 02/08/18 20:00 97.9 F 70 24 H 02/08/18 16:00 98.5 F 78 20 02/08/18 15:37 02/08/18 13:00 72 72 176/84 H 127/60 02/08/18 12:30 73 02/08/18 11:40 98.3 F 69 20 BP Pulse Ox Pulse Ox Pulse Ox 02/08/18 20:00 139/73 96 02/08/18 16:00 147/75 H 92 L 02/08/18 15:37 147/75 H 02/08/18 13:00 97 95 02/08/18 12:30 126/61 02/08/18 11:40 158/105 H 96 Weight Weight 230 lb 11.2 oz Most Recent Monitor Data Heart Rate from ECG 75 NIBP 98/52 NIBP BP-Mean 63 Respiration from ECG 22 SpO2 99 I&O: 02/07/18 02/08/18 02/09/18 06:59 06:59 06:59 Intake Total 960 720 540 Output Total 175 Balance 960 545 540 Result Diagrams: 02/08/18 04:03 02/08/18 04:03 Additional Labs: Accuchecks 02/08/18 02/08/18 02/08/18 21:09 17:04 10:46 POC Glucose 147 H 96 110 02/08/18 05:50 POC Glucose 89 EKG Reviewed by me: Yes (Tele SR) Phys Exam - Physical Examination Constitutional: NAD Respiratory: no wheezing, no rhonchi Cardiovascular: RRR, no rub Gastrointestinal: soft, non-tender, positive bowel sounds Musculoskeletal: no edema Neurological: moves all 4 limbs Dx/Plan - Plan DVT proph w/SCDs IMPRESSION: 1. DM2 2. HTN 3. Obesity BMI 38.9 4. CKD 2 5. Other issues per previous notes PLAN: Cont Lantus with sliding scale with Metformin Cont other meds as below Cont to monitor Review of Systems - Review of Systems Cardiovascular: negative: chest pain, palpitations, orthopnea, paroxysmal nocturnal dyspnea, edema, light headedness, other Gastrointestinal: negative: Nausea, Vomiting, Abdominal Pain, Diarrhea, Constipation, Melena, Hematochezia, Other - Medications/Allergies Allergies/Adverse Reactions: Allergies Allergy/AdvReac Type Severity Reaction Status Date / Time No Known Drug Allergies Allergy Verified 02/02/18 16:45 Medications: Current Medications Acetaminophen (Tylenol) 650 mg PO Q6H PRN PRN Reason: Pain Last Admin: 02/05/18 20:55 Dose: 650 mg Aspirin (Aspirin Chewable) 81 mg PO DAILY [facility] Last Admin: 02/08/18 08:58 Dose: 81 mg Atorvastatin Calcium (Lipitor) 40 mg PO HS [facility] Last Admin: 02/08/18 21:05 Dose: 40 mg Clopidogrel Bisulfate (Plavix) 75 mg PO DAILY [facility] Last Admin: 02/08/18 08:59 Dose: 75 mg Dextrose/Water (Dextrose 50%) 25 gm SLOW IVP PRN PRN PRN Reason: Hypoglycemia Fentanyl (Sublimaze) 25 mcg SLOW IVP Q4H PRN PRN Reason: Severe Pain (7-10) Glucagon (Glucagon) 1 mg IM PRN PRN PRN Reason: Hypoglycemia Dextrose/Water (D5w) 1,000 mls @ 0 mls/hr IV .Q0M PRN PRN Reason: Hypoglycemia Insulin Glargine 10 units/ (Miscellaneous Medication) 0.1 mls @ 0 mls/hr [facility] Last Admin: 02/08/18 09:03 Dose: 0.1 mls Insulin Human Lispro (Humalog) 0 units SC .MODERATE SLIDING SC PRN PRN Reason: Moderate Correctional Scale Last Admin: 02/05/18 17:02 Dose: 2 unit Lisinopril (Zestril) 2.5 mg PO DAILY [facility] Last Admin: 02/08/18 09:00 Dose: 2.5 mg Metformin HCl (Glucophage) 500 mg PO BID[facility] Last Admin: 02/08/18 18:25 Dose: 500 mg Morphine Sulfate (Morphine) 4 mg SLOW IVP Q4H PRN PRN Reason: Breakthrough Pain Last Admin: 02/05/18 06:46 Dose: 4 mg Ondansetron HCl (Zofran) 4 mg IVP Q6H PRN PRN Reason: Nausea/Vomiting Last Admin: 02/07/18 17:42 Dose: 4 mg Promethazine HCl (Phenergan) 25 mg SLOW IVP Q6H PRN PRN Reason: Nausea Last Admin: 02/02/18 22:27 Dose: 25 mg Propranolol HCl (Inderal) 40 mg PO TID [facility] Last Admin: 02/08/18 21:06 Dose: 40 mg Senna/Docusate Sodium (Senokot S) 1 tab PO BID [facility] Last Admin: 02/08/18 21:09 Dose: Not Given Sodium Chloride (Flush - Normal Saline) 10 ml IVF Q12HR [facility] Last Admin: 02/08/18 21:09 Dose: 10 ml Sodium Chloride (Flush - Normal Saline) 10 ml IVF PRN PRN PRN Reason: Saline Flush
[2018-02-09] MEDS: Acetaminophen 325 MG TAB PO PRN (04:50)
[2018-02-09] MEDS: Lisinopril 2.5 MG TAB PO SCH (08:49)
[2018-02-09] MEDS: Senokot S 8.6-50 MG TAB PO SCH (08:49)
[2018-02-09] MEDS: Clopidogrel Bisulfate 75 MG TAB PO SCH (08:50)
[2018-02-09] MEDS: metFORMIN 500 MG TAB PO SCH (08:50)
[2018-02-09] MEDS: Propranolol HCl 20 MG TAB PO SCH (08:50)
[2018-02-09] MEDS: Insulin Glargine 10 UNITS in Pre-Filled Syringe SC SCH (10:29)
[2018-02-09 10:43] LABS: Potassium 3.8 mmol/L (3.5-5.1)
--- NOTE | 2018-02-09 13:17 | PDOC.PN ---
- Subjective Encounter Start Date: 02/09/18 Encounter Start Time: 09:00 Patient seen and examined for med mngt. No new complaints. No overnight events - Objective MAR Reviewed: Yes Vital Signs & Weight: Vital Signs (12 hours) Temp Pulse Pulse Pulse Resp BP BP 02/09/18 12:00 97.4 F L 69 16 02/09/18 10:59 68 91 135/75 02/09/18 08:49 73 147/81 H 02/09/18 08:08 98.6 F 73 20 02/09/18 08:00 98.6 F 66 20 02/09/18 04:00 97.8 F 62 20 BP BP Pulse Ox Pulse Ox Pulse Ox 02/09/18 12:00 135/81 94 L 02/09/18 10:59 141/73 H 95 95 02/09/18 08:49 02/09/18 08:08 95 02/09/18 08:00 147/81 H 97 02/09/18 04:00 135/70 95 Weight Weight 233 lb 4.8 oz Most Recent Monitor Data Heart Rate from ECG 75 NIBP 98/52 NIBP BP-Mean 63 Respiration from ECG 22 SpO2 99 I&O: 02/08/18 02/09/18 02/10/18 06:59 06:59 06:59 Intake Total 720 980 Output Total 175 Balance 545 980 Result Diagrams: 02/08/18 04:03 02/09/18 09:47 Additional Labs: Accuchecks 02/09/18 02/09/18 02/08/18 10:30 05:56 21:09 POC Glucose 105 132 H 147 H 02/08/18 17:04 POC Glucose 96 EKG Reviewed by me: Yes (Tele SR) Phys Exam - Physical Examination Constitutional: NAD Respiratory: no wheezing, no rhonchi Cardiovascular: RRR, no rub Gastrointestinal: soft, positive bowel sounds Dx/Plan - Plan DVT proph w/SCDs IMPRESSION: 1. DM2 2. HTN 3. Obesity BMI 38.9 4. CKD 2 5. Hypokalemia/Other issues per previous notes PLAN: DC Lantus Increase Metformin to 1000 mg BID [employer] input appreciated Patient was advised to maintain a blood sugar log. Cont other meds as below Review of Systems - Review of Systems Respiratory: negative: Cough, Dry, Shortness of Breath, Hemoptysis, SOB with Excertion, Pleuritic Pain, Sputum, Wheezing Cardiovascular: negative: chest pain, palpitations, orthopnea, paroxysmal nocturnal dyspnea, edema, light headedness, other - Medications/Allergies Allergies/Adverse Reactions: Allergies Allergy/AdvReac Type Severity Reaction Status Date / Time No Known Drug Allergies Allergy Verified 02/02/18 16:45 Medications: Current Medications Acetaminophen (Tylenol) 650 mg PO Q6H PRN PRN Reason: Pain Last Admin: 02/09/18 04:50 Dose: 650 mg Aspirin (Aspirin Chewable) 81 mg PO DAILY [facility] Last Admin: 02/09/18 08:50 Dose: 81 mg Atorvastatin Calcium (Lipitor) 40 mg PO HS [facility] Last Admin: 02/08/18 21:05 Dose: 40 mg Clopidogrel Bisulfate (Plavix) 75 mg PO DAILY [facility] Last Admin: 02/09/18 08:50 Dose: 75 mg Dextrose/Water (Dextrose 50%) 25 gm SLOW IVP PRN PRN PRN Reason: Hypoglycemia Fentanyl (Sublimaze) 25 mcg SLOW IVP Q4H PRN PRN Reason: Severe Pain (7-10) Glucagon (Glucagon) 1 mg IM PRN PRN PRN Reason: Hypoglycemia Dextrose/Water (D5w) 1,000 mls @ 0 mls/hr IV .Q0M PRN PRN Reason: Hypoglycemia Insulin Human Lispro (Humalog) 0 units SC .MODERATE SLIDING SC PRN PRN Reason: Moderate Correctional Scale Last Admin: 02/05/18 17:02 Dose: 2 unit Lisinopril (Zestril) 2.5 mg PO DAILY [facility] Last Admin: 02/09/18 08:49 Dose: 2.5 mg [facility] Stop: 02/09/18 23:59 Last Admin: 02/09/18 08:50 Dose: 500 mg [facility] Morphine Sulfate (Morphine) 4 mg SLOW IVP Q4H PRN PRN Reason: Breakthrough Pain Last Admin: 02/05/18 06:46 Dose: 4 mg Ondansetron HCl (Zofran) 4 mg IVP Q6H PRN PRN Reason: Nausea/Vomiting Last Admin: 02/07/18 17:42 Dose: 4 mg Promethazine HCl (Phenergan) 25 mg SLOW IVP Q6H PRN PRN Reason: Nausea Last Admin: 02/02/18 22:27 Dose: 25 mg Propranolol HCl (Inderal) 40 mg PO TID [facility] Last Admin: 02/09/18 08:50 Dose: 40 mg Senna/Docusate Sodium (Senokot S) 1 tab PO BID [facility] Last Admin: 02/09/18 08:49 Dose: 1 tab Sodium Chloride (Flush - Normal Saline) 10 ml IVF Q12HR [facility] Last Admin: 02/09/18 08:51 Dose: 10 ml Sodium Chloride (Flush - Normal Saline) 10 ml IVF PRN PRN PRN Reason: Saline Flush
[2018-02-09] MEDS ORDERED: Nitroglycerin 0.4 MG TAB (25 Tab Bottle) SL PRN (15:29)
[2018-02-09 16:00] VITALS: BP 151/77; TEMP 97.6
--- NOTE | 2018-02-10 06:26 | DIS ---
DISCHARGE DIAGNOSES: 1. Inferior ST-elevation myocardial infarction with drug-eluting stent placed in the right coronary artery. MB 241.7, troponin I of 57.952. 2. Severe bradycardia with temporary pacemaker placement at the time of infarction. 3. 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 4. Three-vessel coronary artery disease, felt best to be treated medically; however, she may require surgical intervention in the future. 5. Hypercholesterolemia. 6. Hypertension. 7. Diabetes. 8. Obesity. 9. Benign essential tremor. DISCHARGE MEDICATIONS: Aspirin 81 daily, atorvastatin 40 mg at bedtime, Plavix 75 mg daily, lisinopril 2.5 mg daily, metformin 1000 b.i.d., nitroglycerin 0.4 mg sublingually p.r.n., propranolol LA 120 mg q.a.m. DISCHARGE DISPOSITION: The patient will be seen in 1 month with EKG being obtained as well as complete metabolic profile and fasting lipid profile. Consideration will be given to repeat catheterization in the future given her 3- vessel disease. HOSPITAL COURSE: Ms. Galan presented on 02/02/2018. She had awakened at 1: 00 a.m. with chest pressure associated with nausea, vomiting, shortness of breath. Ultimately, she went to the emergency room in [place] and was then sent via helicopter here. I saw her approximately 13 hours after onset of her pain. She was found to have ST-segment elevation in II, III and aVF. She went directly to the cardiac laborer aquatic life. She was found to have 60% mid right coronary artery lesion and 99% distal lesion. Synergy 3.5 x 38, 2.5 x 38, 2.5 x 20 placed in the right coronary artery. In to the right posterior descending, Synergy 2.5 x 12 mm was placed. There was no flow even with multiple injections of intracoronary nitroglycerin and adenosine distally. She did require temporary pacing for severe bradycardia. The remainder of her coronary arteries revealed 30% proximal LAD, 60% mid LAD, 95% distal LAD and a 70% lesion in the first diagonal. The circumflex had a 60 % mid stenosis. Two days after she presented with her infarction, her temporary pacemaker was removed. She was treated with Aggrastat for 24 hours after the intervention. Echocardiogram performed 4 days after her infarction, surprisingly showed an ejection fraction of 55% to 60% with only moderate inferior hypokinesis. There was left atrial enlargement, mitral annular calcification, aortic valvular sclerosis, mild mitral regurgitation, mild tricuspid regurgitation and mild pulmonic insufficiency. She was seen by Dr. Pandey in consultation regarding possible surgery. We both felt to be best at this time to delay any further treatment or intervention as long as she was asymptomatic. She was walking over 100 feet in the garner without symptoms at the time of discharge. Consideration will be given to repeat catheterization in the future. ANNETTA
[2018-02-10] MEDS ORDERED: metFORMIN 500 MG TAB PO SCH (08:00)
[2018-02-10] MEDS ORDERED: Propranolol HCl LA 60 MG CAP PO SCH (09:00)
== END 2018-02-09 16:42 | disposition home or self-care (01) | DRG 247 ==
LOC: SDC 14:05 → CCU 14:54 → 2SE 02-05 19:43
PROVIDERS: ADMIT Internal Medicine Cardiovascular Disease; ATTEND Internal Medicine Cardiovascular Disease
PROC: 027036Z Dilation of Coronary Artery, One Artery with Three Drug-eluting Intraluminal Devices, Percutaneous Approach (ICD-10-PCS; principal; 2018-02-02)
PROC: 4A023N7 Measurement of Cardiac Sampling and Pressure, Left Heart, Percutaneous Approach (ICD-10-PCS; 2018-02-02)
PROC: B2151ZZ Fluoroscopy of Left Heart using Low Osmolar Contrast (ICD-10-PCS; 2018-02-02)
PROC: B2111ZZ Fluoroscopy of Multiple Coronary Arteries using Low Osmolar Contrast (ICD-10-PCS; 2018-02-02)
PROC: 5A2204Z Restoration of Cardiac Rhythm, Single (ICD-10-PCS; 2018-02-02)
PROC: 5A1223Z Performance of Cardiac Pacing, Continuous (ICD-10-PCS; 2018-02-02)
DX: I21.19 ST elevation (STEMI) myocardial infarction involving other coronary artery of inferior wall (principal); I47.2 Ventricular tachycardia; E66.01 Morbid (severe) obesity due to excess calories; Z68.38 Body mass index [BMI] 38.0-38.9, adult; I25.10 Atherosclerotic heart disease of native coronary artery without angina pectoris; E11.22 Type 2 diabetes mellitus with diabetic chronic kidney disease; I12.9 Hypertensive chronic kidney disease with stage 1 through stage 4 chronic kidney disease, or unspecified chronic kidney disease; N18.2 Chronic kidney disease, stage 2 (mild); E11.65 Type 2 diabetes mellitus with hyperglycemia; E87.6 Hypokalemia; G25.0 Essential tremor; R00.1 Bradycardia, unspecified; E78.00 Pure hypercholesterolemia, unspecified; G89.29 Other chronic pain; Z79.84 Long term (current) use of oral hypoglycemic drugs; Z79.02 Long term (current) use of antithrombotics/antiplatelets
CPT/HCPCS: 33210; 36415; 36416; 71045; 76001; 80048; 80053; 80061; 82550; 82553; 83036; 83735; 84132; 84443; 84484; 85014; 85018; 85025; 85049; 85347; 85610; 85730; 86850; 86900; 86901; 92941; 93005; 93010; 93306; 93454; 93798; A4216; C1725; C1757; C1769; C1874; C1887; C9606; G8978-GP-CJ; G8979-GP-CJ; G8980-GP-CJ; G8987-GO-CI; G8988-GO-CI; G8989-GO-CI; J0153; J0282; J0461; J1644; J2270; J2405; J2550; J3246; J7070

== ENCOUNTER 2018-08-19 15:39 | Inpatient (IN) | payer MEDICARE ==
[2018-08-19] MEDS ORDERED: Ondansetron PF 4 MG/2 ML Vial ONE (16:39)
[2018-08-19 16:46] LABS: #Basophils 0.1 thou/uL (0.0-0.2); #Lymphocytes 1.2 thou/uL (1.20-3.40); #Monocytes 0.1 thou/uL (0.11-0.59); #Neutrophils 5.4 thou/uL (1.40-6.50); %Basophils 0.9 % (0.0-1.0); %Eosinophils 0.1 % (0.0-10.0); %Lymphocytes 17.6 % (21.0-51.0); %Monocytes 1.9 % (0.0-10.0); %Neutrophils 79.5 % (42.0-75.0); Hemoglobin 13.7 g/dL (12.0-16.0); Mean Corpuscular HGB CONC 31.7 g/dL (32.0-36.0); Mean Corpuscular Hemoglobin 29.4 pg (27.0-31.0); Mean Corpuscular Volume 92.7 fL (78.0-98.0); Mean Platelet Volume 8.4 fL (7.4-10.4); Platelet Count 211 thou/uL (130-400); RBC Distribution Width 13.4 % (11.5-14.5); Red Blood Cell (RBC) Count 4.66 mill/uL (4.20-5.40); White Blood Cell (WBC) Count 6.8 thou/uL (4.8-10.8)
[2018-08-19 17:04] LABS: Bilirubin Negative (Negative); Blood, Urine Moderate (Negative); Clarity TURBID (Clear); Glucose, Urine (Dipstick) 250 mg/dL (Negative); Leukocyte Large (Negative); Nitrite Negative (Negative); Protein, Urine (Dipstick) 30 mg/dL (Neg-Trace); Specific Gravity, Urine 1.018 (1.002-1.036); pH, Urine 6.5 (5.0-9.0)
--- NOTE | 2018-08-19 17:06 | RAD ---
CHEST ONE VIEW: Indication: Dizziness with vomiting. Comparison: 02-02-18 IMPRESSION: No acute cardiopulmonary abnormality. Chondrocalcinosis of the right shoulder is stable. POS: [facility]
[2018-08-19 17:07] LABS: ALT (SGPT) 12 U/L (8-55); AST (SGOT) 14 U/L (5-34); Albumin 3.7 g/dL (3.4-4.8); Alkaline Phosphatase 85 U/L (40-150); Anion Gap 13 mmol/L (10-20); BUN (Urea Nitrogen) 18 mg/dL (9.8-20.1); Bilirubin, Total 0.6 mg/dL (0.2-1.2); Calc. Creatinine Clearance 0 mL/min (70-130); Calcium 9.3 mg/dL (7.8-10.44); Carbon Dioxide 25 mmol/L (23-31); Chloride 103 mmol/L (98-107); Estimated GFR-MDRD 78; Globulin 2.9 g/dL (2.4-3.5); Glucose 236 mg/dL (83-110); Lipase 10 U/L (8-78); Potassium 3.7 mmol/L (3.5-5.1); Protein, Total 6.6 g/dL (6.0-8.3); Sodium 137 mmol/L (136-145)
[2018-08-19 17:07] LABS: Bacteria/HPF 4+ HPF (None Seen)
[2018-08-19 17:08] LABS: Pathc Cast-AUWi Flag 10.29 (0-2.49); Yeast-AUWi Flag 111.5 (0-25.0)
[2018-08-19 17:21] LABS: Hyaline Casts/LPF 0-3 HYALINE CAST LPF (0-3 Hyaline); Yeast-All Forms None Seen HPF (None Seen)
[2018-08-19 17:28] LABS: CKMB 1.9 ng/mL (0-6.6)
[2018-08-19] MEDS ORDERED: cefTRIAXone\\ROCEPHIN 2 GM VIAL ONE (17:45)
[2018-08-19] MEDS ORDERED: Sodium Chloride 0.9% 100 ML ONE (17:45)
[2018-08-19] MEDS ORDERED: Metoclopramide HCl 10 MG/2 ML VIAL ONE (18:19)
[2018-08-19 20:55] LABS: Troponin I 0.174 ng/mL (< 0.028)
[2018-08-19] MEDS ORDERED: Ondansetron ODT 4 MG TAB PO PRN (22:05)
[2018-08-19] MEDS: Sodium Chloride 0.9% 1,000 ML IV SCH (22:33)
[2018-08-20] MEDS ORDERED: Ondansetron PF 4 MG/2 ML Vial ONE ×3 (01:20→14:16)
[2018-08-20] MEDS: Ondansetron PF 4 MG/2 ML Vial IVP PRN ×3 (01:29→14:28)
[2018-08-20] MEDS ORDERED: Acetaminophen 1,000 MG in Premix Bag 1 BAG IVPB PRN (08:16)
[2018-08-20] MEDS ORDERED: Dextrose 5% in Water 1,000 ML IV PRN (08:18)
[2018-08-20] MEDS ORDERED: Dextrose 50% Abboject 50 ML SYRINGE SLOW IVP PRN (08:18)
[2018-08-20] MEDS ORDERED: hydrALAZINE 20 MG/ML VIAL SLOW IVP PRN (08:31)
[2018-08-20] MEDS ORDERED: Insulin Regular 300 UNITS/3 ML VIAL ONE (08:50)
[2018-08-20] MEDS ORDERED: Famotidine/PF 20 mg/2ml Vial ONE (08:50)
[2018-08-20] MEDS ORDERED: Clopidogrel Bisulfate 75 MG TAB ONE (08:50)
[2018-08-20] MEDS ORDERED: Lisinopril 10 MG TAB ONE (08:50)
[2018-08-20] MEDS ORDERED: Aspirin Chewable 81 MG TAB ONE (08:50)
[2018-08-20] MEDS ORDERED: Morphine 2 MG/ML SYRINGE ONE (08:50)
[2018-08-20] MEDS ORDERED: Propranolol HCl LA 80 MG CAP PO SCH (09:00)
[2018-08-20] MEDS: HumaLOG 300 UNITS/3 ML VIAL SC PRN (09:00)
--- NOTE | 2018-08-20 09:12 | RAD ---
ABDOMEN 2 VIEWS: HISTORY: Abdominal pain and nausea. COMPARISON: None. FINDINGS: In the left lateral decubitus view, there is no free air projecting over the liver. No dilated air-f illed loops of large or small bowel. Moderate degenerative changes of the lumbar spine. No dilated air-filled loops of large or small bowel. Phleboliths in the pelvis. Moderate degenerative disease pubic symphysis. IMPRESSION: Chronic findings. No acute intraabdominal abnormality. POS: [facility]
[2018-08-20] MEDS: Famotidine/PF 20 mg/2ml Vial SLOW IVP SCH ×2 (09:22→21:00)
[2018-08-20] MEDS: Lisinopril 2.5 MG TAB PO SCH (09:22)
[2018-08-20] MEDS: Clopidogrel Bisulfate 75 MG TAB PO SCH (09:22)
[2018-08-20] MEDS: Aspirin Chewable 81 MG TAB PO SCH (09:22)
[2018-08-20] MEDS: Propranolol HCl LA 60 MG CAP PO SCH (09:51)
[2018-08-20] MEDS: Sodium Chloride 0.9% 1,000 ML IV SCH ×2 (11:20→21:09)
[2018-08-20] MEDS ORDERED: Promethazine HCl 25 MG/ML VIAL IM/IV PRN (15:33)
--- NOTE | 2018-08-20 15:51 | HP ---
CHIEF COMPLAINT: Generalized weakness. 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 The patient states that around 1 yesterday morning, she awoke on the couch feeling very nauseated. She felt so weak that she could not get herself up to the bathroom. She had one episode of emesis with some associated abdominal pain. She denies any chest pain or shortness of breath. Eventually, her daughter who lives nearby came to check on her, and could not get her off the couch and so EMS was called. On arrival to the ER, chest x-ray showed no acute cardiopulmonary abnormality. Her lab work was largely unremarkable, showing normal white blood cell count of 6.8, hemoglobin of 13.7, except for a troponin which was indeterminate at 0.174 and 0.190. Her UA showed positive for moderate amount of blood, large amount of leukocyte esterase, positive white blood cell count, and 4+ urine bacteria. ALLERGIES: NO KNOWN DRUG ALLERGIES. HOME MEDICATIONS: 1. Aspirin 81 mg daily. 2. Atorvastatin 40 mg p.o. at bedtime. 3. Clopidogrel bisulfate 75 mg daily. 4. Lisinopril 2.5 mg daily. 5. Metformin 1000 mg p.o. b.i.d. 6. P.r.n. sublingual nitroglycerin. 7. Propranolol 120 mg p.o. daily. PAST MEDICAL HISTORY: As mentioned, prior SC in January of 2018, status post PTCA and stenting of the RCA with suboptimal results. At that time, CV surgery was consulted and did not deem her a suitable surgical candidate at that time, she has done well on medical management since. She also has hypertension and obesity. SOCIAL HISTORY: No history of smoking. She does not drink any alcohol. FAMILY HISTORY: Positive for diabetes, otherwise noncontributory. CODE STATUS: The patient is a full code. This was discussed with the patient herself. SURGICAL HISTORY: Positive for radiation for meningioma. REVIEW OF SYSTEMS: CONSTITUTIONAL: Positive for generalized weakness. Negative for fever or chills. EYES: Negative for redness, pain, or discharge. ENT: Negative for sinus pain and pressure. Negative for cough. NECK: Negative for injury or swelling. CV: Negative for chest pain, palpitations, edema, or dizziness. RESPIRATORY: Negative for shortness of breath, cough, or wheezing. ABDOMEN/GI: Positive for diffuse abdominal pain and one episode of nausea. Positive for one episode of diarrhea. BACK: Positive for chronic back pain. SKIN: Negative for injury, rash, or discoloration. PHYSICAL EXAMINATION: VITAL SIGNS: Blood pressure 162/82, pulse equals 75, and O2 saturation 98% on room air. CONSTITUTIONAL: Awake, alert. The patient is speaking in full sentences without acute distress. HEAD AND FACE: Normocephalic, atraumatic. EYES: Extraocular movements intact. Normal conjunctivae. ENT: No nasal discharge. Mucous membranes appear moist. NECK: Trachea midline. No masses palpable. Supple, no carotid bruits. RESPIRATORY: Regular respiratory rate and pattern, clear to auscultation bilaterally. ABDOMEN: Soft, positive bowel sounds. No guarding or rebound. No tenderness upon palpation. SKIN: Warm and dry. No rashes. CV: S1, S2, regular rate and rhythm, no appreciable murmurs, rubs, or gallops. NEURO: The patient is nonfocal. LABORATORY DATA: White blood cell count 6.8, hemoglobin 13.7, hematocrit 43.2, platelet count 211. Sodium 137, potassium 3.7, chloride 103, BUN 18, creatinine 0.72. Lactic acid 1.6. Liver function tests within normal limits. Troponin 0.174 and 0.190. UA positive for glucose 250, positive for moderate amount of blood, large amounts of leukocyte esterase as well as white blood cell count and 4+ bacteria. EKG shows normal sinus rhythm, no acute ST- or T-wave changes. Chest x-ray is unremarkable. ASSESSMENT: 1. Urinary tract infection. 2. Generalized weakness secondary to above. 3. Nausea with one episode of emesis, possibly this is related to her urinary tract infection, may be an underlying gastroenteritis. 4. Indeterminate troponin. 5. 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 6. Type 2 diabetes mellitus. PLAN: We will await urine cultures, and continue on Rocephin IV for UTI. We will also obtain blood cultures. Sliding scale insulin. We will obtain abdominal series to look for acute abdominal etiology. We will consider CT scan if her symptoms do not resolve. Continue p.r.n. Zofran and supportive care. Care discussed with Dr. Wylie who agrees with plan. Further recommendations based on hospital course. Job ID: [id number] ANNETTA
[2018-08-20] MEDS ORDERED: Promethazine HCl 25 MG/ML VIAL ONE (16:10)
[2018-08-20 17:20] VITALS: BMI 38.5
[2018-08-20] MEDS: cefTRIAXone\\ROCEPHIN 1 GM in Sodium Chloride 0.9% 100 ML IVPB SCH (17:54)
[2018-08-20] MEDS: Atorvastatin Calcium 40 MG TAB PO SCH (21:00)
[2018-08-20] MEDS: Enoxaparin Sodium 40 MG/0.4 ML SYRINGE SC SCH (21:00)
[2018-08-21 05:17] LABS: #Lymphocytes 1.9 thou/uL (1.20-3.40); #Monocytes 0.9 thou/uL (0.11-0.59); #Neutrophils 6.2 thou/uL (1.40-6.50); %Basophils 0.5 % (0.0-1.0); %Eosinophils 0.3 % (0.0-10.0); %Lymphocytes 20.7 % (21.0-51.0); %Monocytes 9.5 % (0.0-10.0); Hemoglobin 12.1 g/dL (12.0-16.0); Mean Corpuscular HGB CONC 31.5 g/dL (32.0-36.0); Mean Corpuscular Hemoglobin 28.7 pg (27.0-31.0); Mean Corpuscular Volume 91.2 fL (78.0-98.0); Mean Platelet Volume 8.8 fL (7.4-10.4); Platelet Count 199 thou/uL (130-400); RBC Distribution Width 13.6 % (11.5-14.5); Red Blood Cell (RBC) Count 4.21 mill/uL (4.20-5.40)
[2018-08-21 05:37] LABS: Anion Gap 9 mmol/L (10-20); BUN (Urea Nitrogen) 22 mg/dL (9.8-20.1); Calc. Creatinine Clearance 97 mL/min (70-130); Calcium 8.8 mg/dL (7.8-10.44); Carbon Dioxide 24 mmol/L (23-31); Chloride 109 mmol/L (98-107); Estimated GFR-MDRD 84; Glucose 133 mg/dL (83-110); Potassium 3.4 mmol/L (3.5-5.1); Sodium 139 mmol/L (136-145)
[2018-08-21] MEDS: Famotidine/PF 20 mg/2ml Vial SLOW IVP SCH ×2 (09:31→19:49)
[2018-08-21] MEDS: Lisinopril 2.5 MG TAB PO SCH (09:31)
[2018-08-21] MEDS: Aspirin Chewable 81 MG TAB PO SCH (09:32)
[2018-08-21] MEDS: Clopidogrel Bisulfate 75 MG TAB PO SCH (09:32)
[2018-08-21] MEDS: Propranolol HCl LA 60 MG CAP PO SCH (09:32)
[2018-08-21] MEDS: Sodium Chloride 0.9% 1,000 ML IV SCH ×2 (11:29→19:49)
[2018-08-21] MEDS: cefTRIAXone\\ROCEPHIN 1 GM in Sodium Chloride 0.9% 100 ML IVPB SCH (17:13)
--- NOTE | 2018-08-21 19:35 | PRG ---
DATE OF SERVICE: 08/21/2018 SUBJECTIVE: The patient is a very pleasant 83-year-old female with past medical history significant for hypertension, type 2 diabetes mellitus, and inferior wall SD in January of 2018 with preserved EF, who presented to the hospital yesterday with complaints of generalized weakness, nausea, and vomiting. The patient has been admitted with a UTI. Cultures were positive for Raoultella planticola. The patient has been receiving IV Rocephin and is feeling much improved this morning. Her daughter is at bedside, and care is discussed. The patient's nausea and vomiting have completely resolved. She has no abdominal tenderness. Today, she reports no dysuria. Her appetite has returned. She does continue to complain of generalized weakness. OBJECTIVE: VITAL SIGNS: Blood pressure 140/63, temperature 98.2, pulse 66, O2 saturation 95% on room air, and respirations 20. GENERAL: This is a well-appearing elderly female, in no acute distress. HEAD AND FACE: Normocephalic and atraumatic. EYES: Extraocular movements intact and normal conjunctivae. ENT: No nasal discharge. Mucous membranes moist. NECK: Trachea midline. No masses palpable. Supple. No carotid bruits. RESPIRATORY: Regular respiratory rate and pattern. Clear to auscultation bilaterally. ABDOMEN: Soft, positive bowel sounds. No guarding or rebound. No tenderness. SKIN: Warm and dry. No rashes. CV: S1 and S2. Regular rate and rhythm. No appreciable murmurs, rubs, or gallops. NEURO: The patient is nonfocal. LABORATORY DATA: White blood cell count 9, hemoglobin 12.1, hematocrit 38.4, MCV 91.2, and platelet count 199. Sodium 139, potassium 3.4, chloride 109, carbon dioxide 24, anion gap 9, BUN 22, creatinine 0.67, and calcium 8.8. ASSESSMENT: 1. Urinary tract infection, culture positive for Raoultella planticola, blood cultures negative. 2. Generalized weakness secondary to above, the patient lives alone and is still not able to perform her own ADLs. 3. Indeterminate troponin. 4. 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 5. Type 2 diabetes mellitus. 6. Hypertension. PLAN: The patient will need physical therapy eval and possible SNF placement. Continue IV Rocephin for UTI. Further recommendations based on hospital course and PT eval. Job ID: [id number]
[2018-08-21] MEDS: Enoxaparin Sodium 40 MG/0.4 ML SYRINGE SC SCH (19:49)
[2018-08-21] MEDS: Atorvastatin Calcium 40 MG TAB PO SCH (19:49)
[2018-08-21] MEDS: Docusate 100 MG CAP PO PRN (19:54)
[2018-08-21] MEDS: Acetaminophen 500 MG TAB PO PRN (23:11)
[2018-08-22 05:45] LABS: Anion Gap 11 mmol/L (10-20); BUN (Urea Nitrogen) 23 mg/dL (9.8-20.1); Calc. Creatinine Clearance 98 mL/min (70-130); Calcium 8.3 mg/dL (7.8-10.44); Carbon Dioxide 22 mmol/L (23-31); Chloride 111 mmol/L (98-107); Estimated GFR-MDRD 83; Glucose 125 mg/dL (83-110); Potassium 3.6 mmol/L (3.5-5.1); Sodium 140 mmol/L (136-145)
[2018-08-22] MEDS: Lisinopril 2.5 MG TAB PO SCH (08:49)
[2018-08-22] MEDS: Clopidogrel Bisulfate 75 MG TAB PO SCH (08:49)
[2018-08-22] MEDS: Propranolol HCl LA 60 MG CAP PO SCH (08:49)
[2018-08-22] MEDS: Famotidine/PF 20 mg/2ml Vial SLOW IVP SCH ×2 (08:49→20:25)
[2018-08-22] MEDS: Aspirin Chewable 81 MG TAB PO SCH (08:49)
[2018-08-22] MEDS: Docusate 100 MG CAP PO PRN (12:49)
--- NOTE | 2018-08-22 15:10 | PRG ---
DATE OF SERVICE: 08/22/2018 I reviewed the case with Serina Coon, evaluated the patient, reviewed the records. The patient came in with generalized weakness. She appears to have a urinary tract infection, growing a very pansensitive bacteria, which can likely be converted over to p.o. antibiotics now. Her labs are generally good and stable. Her vital signs are reasonably good with temperature 97.9, pulse 66, respirations 20, O2 saturation 98% on room air, and BP 178/78. She is awake, alert, and conversant. Her daughter and son-in-law are in the room as well. I had a nice conversation with them. Overall, the patient is primarily demonstrating some generalized weakness and does not feel like she would be able to take care of herself at home and her daughter is not in a position to be able to care for her right now either. The patient had a CT scan of her head performed because of her recent fall showing area of decreased attenuation in the right cerebellum. There was some inability to fully understand if this was due to the patient's prior benign brain lesion or if it represents a new mass or area of acute or subacute infarct, MRI was recommended. So, I am going to go ahead and get the MRI today. The patient is interested in pursuing possible placement at the [facility] in [place]. So, I will have Case Management talk to her about that as well. Otherwise, resuming her usual home blood pressure medications. Job ID: [id number]
--- NOTE | 2018-08-22 15:40 | PRG ---
DATE OF SERVICE: 08/22/2018 SUBJECTIVE: The patient is a very pleasant 83-year-old female with past medical history significant for hypertension, type 2 diabetes mellitus, inferior wall PA in January 2018, with preserved EF, who presented to the hospital with complaints of generalized weakness, nausea and vomiting. The patient has been admitted with UTI. Cultures were positive for Raoultella planticola. The patient has been receiving IV Rocephin, and her nausea and vomiting has resolved. She denies any dysuria. The patient does continue to complain of profound weakness and some dizziness. Her appetite was good yesterday, however, it has not been as good today. Otherwise, no complaints. OBJECTIVE: VITAL SIGNS: BP 178/78, pulse 66, respirations 20, O2 saturation 98%. GENERAL: Well-appearing elderly female, in no acute distress. HEAD AND FACE: Normocephalic, atraumatic. EYES: Extraocular movements intact. Normal conjunctivae. ENT: No nasal discharge. Mucous membranes moist. NECK: Trachea midline. No masses palpable. Supple. No carotid bruits. RESPIRATORY: Regular respiratory rate and pattern. Clear to auscultation bilaterally. ABDOMEN: Soft. Positive bowel sounds. No guarding or rebound. No tenderness. SKIN: Warm and dry. No rashes CV: S1 and S2. Regular rate and rhythm. No appreciable murmurs, rubs, or gallops. NEURO: The patient is nonfocal. LABORATORY DATA: Sodium 140, potassium 3.6, chloride 111, carbon dioxide 22, BUN 23, creatinine 0.68. Point of care glucose has been 117-118. ASSESSMENT: 1. Urinary tract infection, culture positive for Raoultella planticola, blood cultures have remained negative. 2. Generalized weakness, despite improvement in her presenting symptoms, the patient continues to complain of weakness and debility. 3. History of meningioma, status post radiation. 4. History of acute inferior wall myocardial infarction January 2018, with preserved ejection fraction. 5. Type 2 diabetes mellitus. 6. Hypertension. PLAN: We will increase the patient's lisinopril today secondary to high blood pressure. The patient did have a CAT scan this July, at that time, there was an area of decreased attenuation of the right cerebellum. At that time, it was unclear if this was an area of old infarct or a new mass. Recommendations were made for MRI. Given the patient's symptoms today of dizziness, we will go ahead and proceed with an MRI. Further plan based on findings of noninvasive testing. She will continue PT and OT and will need SNF at discharge. The plan above have been discussed with Dr. Wylie and he agrees. Job ID: [id number]
[2018-08-22] MEDS: cefTRIAXone\\ROCEPHIN 1 GM in Sodium Chloride 0.9% 100 ML IVPB SCH (16:42)
[2018-08-22] MEDS: Sodium Chloride 0.9% 1,000 ML IV SCH (16:48)
--- NOTE | 2018-08-22 17:01 | MRI ---
NONCONTRAST ENHANCED MRI IMAGES OF BRAIN 08/22/18 COMPARISON: Comparison made to a previous CT brain from 07/15/18. HISTORY: Complaining of dizziness. Multiplanar and multisequence noncontrast enhanced MRI images of the brain demonstrate old area of st roke in the posterior aspect of the right cerebellar hemisphere. This is compatible with an old strok e unchanged since the previous CT. There is a subacute area of stroke in the right anterior portion of the cerebellum. It appeared to contreras ve been present on the previous CT from 07/15/18. There is a newly developed left cerebellar areas of signal abnormality most compatible with likely ar ea of hemorrhage in the left anterior cerebellum extending to the left brachium pontis. This area of signal abnormality measures approximately 3.3 x 4.0 cm. It may represent an area of acute or subacute hemorrhage. This can be confirmed using CT. No other acute intracranial masses or lesions seen. Normal flow voids seen in the anterior circulatio n. 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 IMPRESSION: Acute area of signal abnormality compatible with hemorrhage in the left cerebellum extending into the left brachium pontis. This an be confirmed using CT. POS: LOY
--- NOTE | 2018-08-22 18:00 | PDOC.EVN ---
Event Note - Event Note Event Note: MRI showed newly developed left cerebellar areas of signal abnormality most compatible with hemorrhage in the left cerebellum extending into the left brachium pontis. CT ordered to confirm per radiology recs. Care discussed with Jesus Manuel Dallas PA-C with neurosurgery who will review images and consult. All antiplatelet agents stopped, along with DVT prophylaxis. Patient seened and examined; she is resting comfortably, denies EMERSON, nausea, vomiting. She remains non-focal and is conversing easily. I discussed findings and plan, and all questions answered to the patient's satisfaction.
[2018-08-22] MEDS: Atorvastatin Calcium 40 MG TAB PO SCH (20:25)
--- NOTE | 2018-08-22 20:29 | CT ---
CT HEAD WITHOUT IV CONTRAST: 08/22/2018 HISTORY: New left cerebellar hemorrhage seen on MRI. COMPARISON: CT head on 07/15/2018. MRI brain on 08/22/2018. FINDINGS: There is a low density area seen within the left cerebellar hemisphere, which corresponds to signal a bnormality on the MRI examination. The area of low density within the left cerebellar hemisphere par tially extends into the region of the left middle cerebellar peduncle. On the MRI examination, there is decreased signal intensity on gradient echo images, which suggests hemorrhage or possibly melanin in this region. This has a similar distribution to the prior MRI examination. An underlying lesion in this region cannot be excluded based on this examination. There is also a low density area seen within the right cerebellar hemisphere, which demonstrated decr eased signal intensity on gradient echo images, suggesting an area of hemosiderin deposition. A low density area was seen in this region on prior CT on 07/15/2018, and the low density area on today's s tudy is smaller in size. This area previously measured 1.9 cm in greatest AP dimensions and, on y's exam, this area measures approximately 1.4 cm. There is a wedge-shaped low-density focus in the posterior right cerebellar hemisphere, most compatib le with a remote infarction. There are mild scattered areas of diminished attenuation in the periventricular white matter, which a re nonspecific but likely reflective of chronic small vessel ischemic changes. There is mild cerebra l volume loss. The ventricular system is normal in size, shape, and position. No other interval change from prior exams. IMPRESSION: 1. Hypodense area in the left cerebellar hemisphere, extending into the left cerebellar peduncle. T he signal characteristics on the MRI question possibility of hemorrhage on gradient echo, but does no t have typical signal characteristics on T1 sequence. Follow-up MRI with IV contrast is recommended as underlying lesion or metastatic melanoma is a possibility. 2. Low density focus, right cerebellar hemisphere, smaller in size compared to the study on 07/15/19 19, and this area also demonstrated diminished attenuation on gradient echo images on MRI exam, sugge sting hemosiderin deposition. This can also be evaluated on post contrast MRI. 3. Remote infarctions, posterior right cerebellar hemisphere. 4. Chronic small vessel ischemic changes. POS: LOY
[2018-08-23 05:34] LABS: #Eosinphils 0.2 thou/uL (0.0-0.7); #Lymphocytes 1.5 thou/uL (1.20-3.40); #Monocytes 0.9 thou/uL (0.11-0.59); #Neutrophils 4.5 thou/uL (1.40-6.50); %Basophils 0.6 % (0.0-1.0); %Eosinophils 3.3 % (0.0-10.0); %Lymphocytes 20.7 % (21.0-51.0); %Neutrophils 62.4 % (42.0-75.0); Hemoglobin 12.1 g/dL (12.0-16.0); Mean Corpuscular HGB CONC 31.5 g/dL (32.0-36.0); Mean Corpuscular Hemoglobin 28.7 pg (27.0-31.0); Mean Corpuscular Volume 91.3 fL (78.0-98.0); Mean Platelet Volume 8.8 fL (7.4-10.4); Platelet Count 184 thou/uL (130-400); RBC Distribution Width 13.5 % (11.5-14.5); Red Blood Cell (RBC) Count 4.23 mill/uL (4.20-5.40); White Blood Cell (WBC) Count 7.2 thou/uL (4.8-10.8)
[2018-08-23 05:57] LABS: Anion Gap 13 mmol/L (10-20); BUN (Urea Nitrogen) 12 mg/dL (9.8-20.1); Calc. Creatinine Clearance 103 mL/min (70-130); Calcium 8.8 mg/dL (7.8-10.44); Carbon Dioxide 23 mmol/L (23-31); Chloride 106 mmol/L (98-107); Estimated GFR-MDRD 87; Glucose 139 mg/dL (83-110); Potassium 3.9 mmol/L (3.5-5.1); Sodium 138 mmol/L (136-145)
[2018-08-23] MEDS: Propranolol HCl LA 60 MG CAP PO SCH (09:19)
[2018-08-23] MEDS: Famotidine/PF 20 mg/2ml Vial SLOW IVP SCH (09:19)
[2018-08-23] MEDS: Acetaminophen 500 MG TAB PO PRN (11:16)
[2018-08-23] MEDS ORDERED: Enalaprilat Dihydrate 1.25 MG/ML VIAL SLOW IVP PRN (11:34)
[2018-08-23] MEDS ORDERED: Labetalol HCl 100 MG/20 ML VIAL SLOW IVP PRN (11:34)
[2018-08-23] MEDS: HumaLOG 300 UNITS/3 ML VIAL SC PRN (12:40)
--- NOTE | 2018-08-23 14:16 | PDOC.PN ---
- Subjective Encounter Start Date: 08/23/18 Encounter Start Time: 14:10 Patient seen and examined for encephalopathy. Feels dizzy and lightheaded. No new complaints. No overnight events - Objective Resuscitation Status - Order Detail: 08/20/18 08:19 Resuscitation Status Routine Co-Sign Provider: Resuscitation Status: FULL: Full Resuscitation Discussed with: patient DAISHA Reviewed: Yes Vital Signs & Weight: Vital Signs (12 hours) Temp Pulse Pulse Resp BP BP Pulse Ox 08/23/18 12:44 137/77 08/23/18 11:58 98.1 F 60 20 167/77 H 98 08/23/18 09:05 97 08/23/18 08:27 58 L 149/76 H 08/23/18 08:00 97.8 F 60 20 149/79 H 97 08/23/18 04:00 98.6 F 68 20 164/82 H 98 Weight Weight 214 lb 11.2 oz I&O: 08/22/18 08/23/18 08/24/18 06:59 06:59 06:59 Intake Total 2050 720 Output Total 1200 500 300 Balance 850 220 -300 Result Diagrams: 08/23/18 05:22 08/23/18 05:22 Additional Labs: Accuchecks 08/23/18 08/23/18 08/22/18 11:07 05:23 20:46 POC Glucose 169 H 131 H 152 H 08/22/18 17:24 POC Glucose 140 H EKG Reviewed by me: Yes (Tele SR) Phys Exam - Physical Examination Constitutional: NAD Respiratory: no wheezing, no rhonchi Cardiovascular: RRR, no rub Gastrointestinal: soft, non-tender, positive bowel sounds Musculoskeletal: no edema Neurological: moves all 4 limbs Abnormal finger to nose on left, Abn heel to ortiz on left Psychiatric: A&O x 3 Dx/Plan - Plan DVT proph w/SCDs 1. Toxic Metabolic Encephalopathy 2. ?Left cerebellar hemorrhage 3. UTI 4. Elevated troponin due to demand ischemia 5. Obesity BMI 38 6. CAD s/p STEMI 01/27 7. DM2/HTN/CKD 2/Hypokalemia/HLD 8. Other issues per previous notes PLAN: ASA/Plavix on hold Await NSG input Stroke team Resume Lisinopril Cont Inderal Cont IV Ceftriaxone Cont other meds as below Review of Systems - Review of Systems Respiratory: negative: Cough, Dry, Shortness of Breath, Hemoptysis, SOB with Excertion, Pleuritic Pain, Sputum, Wheezing Cardiovascular: negative: chest pain, palpitations, orthopnea, paroxysmal nocturnal dyspnea, edema, light headedness, other - Medications/Allergies Allergies/Adverse Reactions: Allergies Allergy/AdvReac Type Severity Reaction Status Date / Time No Known Drug Allergies Allergy Verified 07/16/18 09:29 Medications: Current Medications Acetaminophen (Tylenol) 1,000 mg PO Q6H PRN PRN Reason: Headache/Fever or Pain Last Admin: 08/23/18 11:16 Dose: 1,000 mg Atorvastatin Calcium (Lipitor) 40 mg PO HS DELMA Last Admin: 08/22/18 20:25 Dose: 40 mg Dextrose/Water (Dextrose 50%) 25 gm SLOW IVP PRN PRN PRN Reason: Hypoglycemia Docusate Sodium (Colace) 100 mg PO DAILYPRN PRN PRN Reason: .CONSTIPATION Last Admin: 08/22/18 12:49 Dose: 100 mg Enalaprilat (Vasotec) 0.625 mg SLOW IVP Q6HR PRN PRN Reason: Sbp Greater Than 150 Glucagon (Glucagon) 1 mg IM PRN PRN PRN Reason: Hypoglycemia Hydralazine HCl (Apresoline) 10 mg SLOW IVP Q4H PRN PRN Reason: SBP > 180 and HR < 70 Dextrose/Water (D5w) 1,000 mls @ 0 mls/hr IV .Q0M PRN PRN Reason: Hypoglycemia Ceftriaxone Sodium 1 gm/ (Sodium Chloride) 100 mls @ 200 mls/hr IVPB Q24HR [facility] Last Admin: 08/22/18 16:42 Dose: 100 mls Insulin Human Lispro (Humalog) 0 units SC .MILD SLIDING SCALE PRN PRN Reason: Mild Correctional Scale Last Admin: 08/23/18 12:40 Dose: 2 unit Labetalol HCl (Normodyne) 10 mg SLOW IVP Q4H PRN PRN Reason: Systolic BP > 150 Lisinopril (Zestril) 2.5 mg PO BID [facility] Ondansetron HCl (Zofran Odt) 4 mg PO Q6H PRN PRN Reason: Nausea/Vomiting Ondansetron HCl (Zofran) 4 mg IVP Q6H PRN PRN Reason: Nausea/Vomiting Last Admin: 08/20/18 14:28 Dose: 4 mg Promethazine HCl (Phenergan) 25 mg IM/IV Q6H PRN PRN Reason: Nausea/Vomiting Last Admin: 08/20/18 16:15 Dose: 25 mg Propranolol HCl (Inderal La) 120 mg PO DAILY [facility] Last Admin: 08/23/18 09:19 Dose: 120 mg
[2018-08-23] MEDS: cefTRIAXone\\ROCEPHIN 1 GM in Sodium Chloride 0.9% 100 ML IVPB SCH (17:53)
[2018-08-23] MEDS: Lisinopril 2.5 MG TAB PO SCH (21:15)
[2018-08-23] MEDS: Senokot S 8.6-50 MG TAB PO SCH (21:16)
[2018-08-23] MEDS: Atorvastatin Calcium 40 MG TAB PO SCH (21:16)
[2018-08-24] MEDS: Acetaminophen 500 MG TAB PO PRN ×3 (05:51→20:42)
[2018-08-24] MEDS: Multivit, Therapeutic 1 TAB PO SCH (08:45)
[2018-08-24] MEDS: Senokot S 8.6-50 MG TAB PO SCH ×2 (08:45→20:41)
[2018-08-24] MEDS: Propranolol HCl LA 60 MG CAP PO SCH (08:45)
[2018-08-24] MEDS: Lisinopril 2.5 MG TAB PO SCH ×2 (08:45→20:41)
[2018-08-24] MEDS: Cyanocobalamin (Vitamin B-12) 1,000 MCG TAB PO SCH (08:45)
[2018-08-24] MEDS: Folic Acid 1 MG TAB PO SCH (08:45)
--- NOTE | 2018-08-24 12:08 | CON ---
DATE OF CONSULTATION: HISTORY: Ms. Galan is an 83-year-old woman, well known to our practice for prior evaluations of meningioma, who was admitted to the hospital for generalized weakness, nausea, vomiting, and diagnosed with UTI in the emergency department. This has been treated with IV antibiotics, and because of her persistent generalized weakness, particularly in the left upper extremity, she had a CT scan and MRI performed of the brain revealing what looks like subacute to chronic hemorrhage in the left cerebellar hemisphere that appears to be resolving. She is on Plavix and aspirin for stent and VT back in January of 2018. Dr. Blake is her batchmaker. From a neurologic standpoint at bedside, the patient is alert and oriented. She understands where she is. She can tell me her date of , her location, the month and the year. Speech is fluid and uninhibited as is her level of consciousness. Overall, she is very well appearing. In neurosurgical standpoint, there is no intervention here. She will need reimaging in around two weeks in the outpatient setting, she is slated to go to the [facility] in [place] tomorrow morning and we will proceed with rehab from there. Our office will arrange followup. We will need to have a discussion with Dr. Wallace about restarting her Plavix and aspirin as this is still going to be necessary given her cardiovascular status, but from our preference would at least need maybe another 5 to 7 days. We will plan to reach out and set a proper timeframe to restart her anti-platelet therapy. Otherwise, no additional intervention is needed. Job ID: [id number]
[2018-08-24] MEDS: HumaLOG 300 UNITS/3 ML VIAL SC PRN ×2 (12:10→21:17)
[2018-08-24] MEDS: cefTRIAXone\\ROCEPHIN 1 GM in Sodium Chloride 0.9% 100 ML IVPB SCH (16:36)
--- NOTE | 2018-08-24 17:03 | PDOC.PN ---
- Subjective Encounter Start Date: 08/24/18 Encounter Start Time: 11:30 Patient seen and examined for Encephalopathy. Mentation improving. Some dizziness. No new complaints. No overnight events - Objective Resuscitation Status - Order Detail: 08/20/18 08:19 Resuscitation Status Routine Co-Sign Provider: Resuscitation Status: FULL: Full Resuscitation Discussed with: patient MAR Reviewed: Yes Vital Signs & Weight: Vital Signs (12 hours) Temp Pulse Pulse Resp BP BP BP 08/24/18 16:42 136/63 08/24/18 15:32 97.5 F L 63 20 159/68 H 08/24/18 11:40 97.7 F 61 24 H 157/80 H 08/24/18 08:45 64 139/58 L 08/24/18 08:36 08/24/18 08:12 60 173/76 H 08/24/18 07:19 97.9 F 64 20 139/58 L Pulse Ox 08/24/18 16:42 08/24/18 15:32 97 08/24/18 11:40 97 08/24/18 08:45 08/24/18 08:36 96 08/24/18 08:12 08/24/18 07:19 96 Weight Weight 214 lb 11.2 oz I&O: 08/23/18 08/24/18 08/25/18 06:59 06:59 06:59 Intake Total 720 540 Output Total 500 1650 Balance 220 -1110 Result Diagrams: 08/23/18 05:22 08/23/18 05:22 Additional Labs: Accuchecks 08/24/18 08/24/18 08/24/18 16:35 10:16 05:45 POC Glucose 134 H 203 H 131 H 08/23/18 08/23/18 19:28 16:56 POC Glucose 178 H 138 H Microbiology 08/19/18 16:44 Urine voided Urine Culture - Final Raoultella planticola EKG Reviewed by me: Yes (Tele SR) Phys Exam - Physical Examination Constitutional: NAD Respiratory: no wheezing, no rhonchi Cardiovascular: RRR, no rub Gastrointestinal: soft, non-tender, positive bowel sounds Musculoskeletal: no edema Neurological: moves all 4 limbs no new focal findings Dx/Plan - Plan DVT proph w/SCDs 1. Toxic Metabolic Encephalopathy - multifactorial 2. Subacute left cerebellar hemorrhage - ASA/Plavix on hold 3. UTI - on IV Atbx 4. Elevated troponin due to demand ischemia 5. Obesity BMI 38 6. CAD s/p STEMI 01/27 7. DM2/HTN/CKD 2/Hypokalemia/HLD 8. Other issues per previous notes PLAN: Resume Metformin Cont Lisinopril at 2.5 BID (takes once a day at home Cont Inderal Change Atbx to PO Ceftriaxone ASA/Plavix on hold until cleared by Dr Castro next week as outpt F/U with Dr Blake next week Cont other meds as below DC to SNF in AM if stable Review of Systems - Review of Systems Respiratory: negative: Cough, Dry, Shortness of Breath, Hemoptysis, SOB with Excertion, Pleuritic Pain, Sputum, Wheezing Cardiovascular: negative: chest pain, palpitations, orthopnea, paroxysmal nocturnal dyspnea, edema, light headedness, other Gastrointestinal: negative: Nausea, Vomiting, Abdominal Pain, Diarrhea, Constipation, Melena, Hematochezia, Other - Medications/Allergies Allergies/Adverse Reactions: Allergies Allergy/AdvReac Type Severity Reaction Status Date / Time No Known Drug Allergies Allergy Verified 07/16/18 09:29 Medications: Current Medications Acetaminophen (Tylenol) 1,000 mg PO Q6H PRN PRN Reason: Headache/Fever or Pain Last Admin: 08/24/18 12:13 Dose: 1,000 mg Atorvastatin Calcium (Lipitor) 40 mg PO HS COUNTS INCLUDE 234 BEDS AT THE [facility] Last Admin: 08/23/18 21:16 Dose: 40 mg Cyanocobalamin (Vitamin B-12) 1,000 mcg PO DAILY COUNTS INCLUDE 234 BEDS AT THE [facility] Last Admin: 08/24/18 08:45 Dose: 1,000 mcg Dextrose/Water (Dextrose 50%) 25 gm SLOW IVP PRN PRN PRN Reason: Hypoglycemia Enalaprilat (Vasotec) 0.625 mg SLOW IVP Q6HR PRN PRN Reason: Sbp Greater Than 150 Folic Acid (Folvite) 1 mg PO DAILY COUNTS INCLUDE 234 BEDS AT THE [facility] Last Admin: 08/24/18 08:45 Dose: 1 mg Glucagon (Glucagon) 1 mg IM PRN PRN PRN Reason: Hypoglycemia Hydralazine HCl (Apresoline) 10 mg SLOW IVP Q4H PRN PRN Reason: SBP > 180 and HR < 70 Dextrose/Water (D5w) 1,000 mls @ 0 mls/hr IV .Q0M PRN PRN Reason: Hypoglycemia Ceftriaxone Sodium 1 gm/ (Sodium Chloride) 100 mls @ 200 mls/hr IVPB Q24HR COUNTS INCLUDE 234 BEDS AT THE [facility] Last Admin: 08/24/18 16:36 Dose: 100 mls Insulin Human Lispro (Humalog) 0 units SC .MILD SLIDING SCALE PRN PRN Reason: Mild Correctional Scale Last Admin: 08/24/18 12:10 Dose: 3 unit Labetalol HCl (Normodyne) 10 mg SLOW IVP Q4H PRN PRN Reason: Systolic BP > 150 Lisinopril (Zestril) 2.5 mg PO BID COUNTS INCLUDE 234 BEDS AT THE [facility] Last Admin: 08/24/18 08:45 Dose: 2.5 mg Met[facility] ([facility] (Theragran) 1 tab PO DAILY COUNTS INCLUDE 234 BEDS AT THE [facility] Last Admin: 08/24/18 08:45 Dose: 1 tab Ondansetron HCl (Zofran Odt) 4 mg PO Q6H PRN PRN Reason: Nausea/Vomiting Ondansetron HCl (Zofran) 4 mg IVP Q6H PRN PRN Reason: Nausea/Vomiting Last Admin: 08/20/18 14:28 Dose: 4 mg Promethazine HCl (Phenergan) 25 mg IM/IV Q6H PRN PRN Reason: Nausea/Vomiting Last Admin: 08/20/18 16:15 Dose: 25 mg Propranolol HCl (Inderal La) 120 mg PO DAILY COUNTS INCLUDE 234 BEDS AT THE [facility] Last Admin: 08/24/18 08:45 Dose: 120 mg Senna/Docusate Sodium (Senokot S) 1 tab PO BID COUNTS INCLUDE 234 BEDS AT THE [facility] Last Admin: 08/24/18 08:45 Dose: 1 tab
[2018-08-24] MEDS ORDERED: Polyethylene Glycol 3350 17 GM Packet PO PRN (17:05)
[2018-08-24] MEDS: Atorvastatin Calcium 40 MG TAB PO SCH (20:42)
[2018-08-24] MEDS: Cefdinir 300 MG CAP PO SCH (21:17)
[2018-08-25] MEDS: HumaLOG 300 UNITS/3 ML VIAL SC PRN (05:02)
[2018-08-25] MEDS ORDERED: metFORMIN 500 MG TAB PO SCH (08:00)
[2018-08-25] MEDS: Senokot S 8.6-50 MG TAB PO SCH (09:20)
[2018-08-25] MEDS: Propranolol HCl LA 60 MG CAP PO SCH (09:20)
[2018-08-25] MEDS: Lisinopril 2.5 MG TAB PO SCH (09:20)
[2018-08-25] MEDS: Multivit, Therapeutic 1 TAB PO SCH (09:20)
[2018-08-25] MEDS: Cefdinir 300 MG CAP PO SCH (09:20)
[2018-08-25] MEDS: Folic Acid 1 MG TAB PO SCH (09:21)
[2018-08-25] MEDS: Cyanocobalamin (Vitamin B-12) 1,000 MCG TAB PO SCH (09:21)
[2018-08-25] MEDS ORDERED: Magnesium Citrate 300 ML BOT PO SCH (09:45)
[2018-08-25] MEDS: Acetaminophen 500 MG TAB PO PRN (10:47)
[2018-08-25 11:44] VITALS: TEMP 98.1
[2018-08-25 12:12] VITALS: BP 168/72
--- NOTE | 2018-08-25 17:12 | EKG ---
Test Reason : Blood Pressure : / mmHG Vent. Rate : 062 BPM Atrial Rate : 062 BPM P-R Int : 164 ms QRS Dur : 094 ms QT Int : 426 ms P-R-T Axes : -08 -27 -20 degrees QTc Int : 432 ms Poor data quality, interpretation may be adversely affected Normal sinus rhythm Minimal voltage criteria for LVH, may be normal variant Inferior infarct , age undetermined Anterior infarct , age undetermined Abnormal ECG Confirmed by GEM HIGGINBOTHAM, RYAN ([id number]), assistant editor TANNER MARTINEZ ([id number]) on 08/25/2018 5:12:32 PM Referred By: Confirmed By:RYAN RABAGO MD
--- NOTE | 2018-08-27 12:03 | DIS ---
DATE OF ADMISSION: 08/22/2018 DATE OF DISCHARGE: 08/25/2018 PRIMARY CARE PROVIDER: Marbella Mondragon PA-C DISCHARGE DIAGNOSES: 1. Nontraumatic intracranial hemorrhage. 2. Urinary tract infection. 3. Generalized weakness. CONDITION OF PATIENT ON THE DAY OF DISCHARGE: Stable. I assessed Ms. Galan on the day of discharge. She denies any chest pain or shortness of breath. Vital signs are stable. S1 and S2 are heard, regular. Lungs are clear to auscultation bilaterally. DISCHARGE MEDICATIONS: Aspirin and Plavix are on hold until they are further reassessed by Cardiology and Neurosurgical Services. Her discharge medications includes; 1. Propranolol 120 mg daily. 2. Coenzyme Q10 100 mg daily. 3. Lipitor 40 mg at bedtime. 4. Cefdinir 300 mg 2 times a day for 1 week. 5. Lisinopril 2.5 mg 2 times a day. 6. Metformin 1000 mg 2 times a day. 7. Nitroglycerin p.r.n. CONSULTATIONS DURING THIS HOSPITALIZATION: Neurosurgery, Dr. Charan Castro. HOSPITAL COURSE: Ms. Galan is a pleasant 80-year-old lady, who was admitted to [facility] on August 19, 2018, for generalized weakness. She was also found to have urinary tract infection. She received intravenous antibiotics. Urine cultures grew Raoultella planticola, which was pansensitive. She has been stepped down to oral antibiotics. She had MRI of the brain on August 22, 2018, because of generalized weakness. She was found to have an acute area of signal abnormality compatible with hemorrhage in the left cerebellum extending into the left brachium pontis. She went on to have a noncontrast CT scan of the brain, which showed hypodense area in the left cerebellar hemisphere extending into left cerebellar peduncle. The signal characteristics on the MRA question possibility of hemorrhage on gradient echo, but does not have typical signal characteristics on T1 sequence according to radiologist. She was seen by Neurosurgery Service. Her aspirin and Plavix are on hold. Neurosurgery will follow with her as outpatient and consider when to resume her antiplatelet agents. She also had significant physical deconditioning. She was evaluated by Therapy Services. She is being discharged to [facility] for further management. Many thanks for allowing me to participate in your patient's care. Please feel free to contact me with any questions or concerns. DISCHARGE DESTINATION: [facility] [place]. TOTAL AMOUNT OF TIME SPENT COORDINATING THIS DISCHARGE: 33 minutes. Job ID: [id number]
== END 2018-08-25 15:53 | DRG 64 ==
LOC: ERS 15:39 → ERHOLD 18:56 → 2SW 08-20 16:50 → EDBD 08-22 13:25 → OBSVTOIN 08-22 13:25 → 2SE 08-22 23:11
PROVIDERS: ADMIT Internal Medicine; ATTEND Internal Medicine
DX: I61.4 Nontraumatic intracerebral hemorrhage in cerebellum (principal); G92 Toxic encephalopathy; N39.0 Urinary tract infection, site not specified; I24.8 Other forms of acute ischemic heart disease; E87.6 Hypokalemia; E11.22 Type 2 diabetes mellitus with diabetic chronic kidney disease; I12.9 Hypertensive chronic kidney disease with stage 1 through stage 4 chronic kidney disease, or unspecified chronic kidney disease; N18.2 Chronic kidney disease, stage 2 (mild); E66.9 Obesity, unspecified; Z68.38 Body mass index [BMI] 38.0-38.9, adult; M62.81 Muscle weakness (generalized); E78.5 Hyperlipidemia, unspecified; B96.89 Other specified bacterial agents as the cause of diseases classified elsewhere; Z95.5 Presence of coronary angioplasty implant and graft; I25.2 Old myocardial infarction; Z79.84 Long term (current) use of oral hypoglycemic drugs; Z79.82 Long term (current) use of aspirin; Z79.899 Other long term (current) drug therapy; Z86.011 Personal history of benign neoplasm of the brain; Z92.3 Personal history of irradiation; Z83.3 Family history of diabetes mellitus; Z79.02 Long term (current) use of antithrombotics/antiplatelets; Z91.81 History of falling
CPT/HCPCS: 36415; 36416; 70450; 70551; 71045; 74019; 80048; 80053; 81003; 81015; 82553; 83605; 83690; 84484; 85025; 87040; 87077; 87086; 87186; 93005; 94760; 96361; 96365; 96367; 96375; J0696; J1650; J1815; J2270; J2405; J2550; J2765; J7050; S0028